=== PATIENT | female | born 1990 | race Caucasian/White ===

== ENCOUNTER 2022-10-29 12:15 | Outpatient (CLI) | payer OTHER, SELFPAY ==
--- NOTE | ~2022-10-29 | XR_ITS ---
Right foot Technique: AP and lateral standing views were obtained. Clinical History: Osteoarthritis Findings: No acute fracture or dislocation is seen. Osseous alignment is anatomic. Joint spaces are p reserved without erosive or degenerative change. Soft tissues are unremarkable. Impression: Unremarkable right foot radiographs. Reviewed, dictated and finalized at location . Impression: Unremarkable right foot radiographs.
--- NOTE | ~2022-10-29 | XR_ITS ---
AP and oblique views of the SI joints CLINICAL HISTORY: Osteoarthritis FINDINGS: SI joints and hip joints are unremarkable. No degenerative, or erosive or sclerotic change seen. Soft tissues are unremarkable. IMPRESSION: Unremarkable exam. Reviewed, dictated and finalized at location M. IMPRESSION: Unremarkable exam.
--- NOTE | ~2022-10-29 | XR_ITS ---
Left foot Technique: AP and lateral standing views were obtained. Clinical History: Osteoarthritis Findings: No acute fracture or dislocation is seen. Osseous alignment is anatomic. Joint spaces are p reserved without erosive or degenerative change. Soft tissues are unremarkable. Impression: Unremarkable left foot radiographs. Reviewed, dictated and finalized at location . Impression: Unremarkable left foot radiographs.
--- NOTE | ~2022-10-29 | XR_ITS ---
Bilateral Hands Technique: PA, oblique, and lateral views, and ball-catcher's view were obtained. Clinical History: Osteoporosis arthritis Findings: No acute fracture or dislocation is seen. Osseous alignment is anatomic. Joint spaces are p reserved. Soft tissues are unremarkable. Impression: Unremarkable bilateral hand radiographs. Reviewed, dictated and finalized at location . Impression: Unremarkable bilateral hand radiographs.
[2022-10-29 13:18] LABS: Basophils Percent Auto 0.5 % (0.2-1.2); Eosinophils Absolute Auto 0.1 K/mm3 (0-0.3); Eosinophils Percent Auto 1.1 % (0-4.4); Hematocrit 44.8 % (37.0-47.0); Hemoglobin 15.1 g/dL (12.0-15.0); Immature Granulocyte Absolute 0.01 K/mm3 (0.00-0.031); Immature Granulocyte Percent A 0.2 % (0-0.5); Lymphocytes Absolute Auto 1.69 K/mm3 (0.9-3.2); Lymphocytes Percent Auto 27.5 % (18.3-44.2); Mean Corpuscular HGB Conc 33.7 g/dl (32-36); Mean Corpuscular Hemoglobin 31.4 pg (26-34); Mean Corpuscular Volume 93.1 fl (80-100); Mean Platelet Volume 9.7 fl (7.4-10.4); Monocytes Absolute Auto 0.4 K/mm3 (0.1-0.6); Monocytes Percent Auto 6.8 % (2.6-8.5); Neutrophils Absolute Auto 3.9 K/mm3 (1.3-6.7); Neutrophils Percent Auto 63.9 % (45.5-73.1); Platelet Count Result 291 k/mm3 (150-375); Red Blood Count 4.81 M/mm3 (4.2-5.4); Red Cell Distribution Width 12.2 % (11.5-14.5); White Blood Count 6.1 K/mm3 (4.5-10.0)
[2022-10-29 13:35] LABS: Alanine Aminotransferase 19 U/L (6-35); Albumin Level 4.6 g/dL (3.5-5.1); Alkaline Phosphatase 53 U/L (38-126); Anion Gap 6 mmol/L (8-16); Aspartate Amino Transferase 28 U/L (14-36); Bilirubin,Total 0.4 mg/dL (0.2-1.3); Blood Urea Nitrogen 19 mg/dL (7-17); CRP 0.5 mg/dL (<1.0); Calcium 9.5 mg/dL (8.4-10.2); Carbon Dioxide 29 mmol/L (22-30); Chloride 104 mmol/L (98-107); Creatine Kinase 70 U/L (30-135); Estimated Glomerular Filt Rate > 60; Glucose 88 mg/dL (65-110); Potassium 3.7 mmol/L (3.4-5.0); Sodium 139 mmol/L (137-145); Uric Acid 3.4 mg/dL (2.5-7.5)
[2022-10-29 13:42] LABS: Rheumatoid Factor < 12.0 IU/ML (<12)
[2022-10-29 13:53] LABS: Vitamin D 25 Hydroxy 47.7 ng/mL
[2022-10-29 13:56] LABS: Erythrocyte Sedimentation Rate 12 mm/hr (0-20)
[2022-10-29 14:08] LABS: Hepatitis B Surface Antigen Negative (Negative)
[2022-10-29 14:09] LABS: HIV 1/2 Ab P24 Ag Result Negative (Negative)
[2022-10-29 14:26] LABS: Hepatitis B Surface Anti Res Negative; Hepatitis C Virus Antibody Negative (Negative)
[2022-11-01 03:21] LABS: Thyroid Peroxidase Antibodies 2 IU/mL (<9)
[2022-11-02 22:05] LABS: Anti Cyclic Citrullinated Pept <16 Units (<20)
[2022-11-02 23:59] LABS: Aldolase 3.5 U/L (<=8.1)
[2022-11-03 08:42] LABS: Angiotensin Converting Enzyme 27.8 U/L (9-67)
[2022-11-03 19:49] LABS: Immunoglobulin A 129 mg/dL (47-310); TTG IGA AB <1.0 U/mL (<15.0)
[2022-11-04 05:13] LABS: Lupus dRVVT Screen 39 sec (<=45); PTT-LA Screen 39 sec (<=40)
== END 2022-10-29 12:16 | disposition home or self-care (01) ==
PROVIDERS: PCP Family Medicine; Visit Provider Internal Medicine
DX: M19.90 Unspecified osteoarthritis, unspecified site (principal); M06.041 Rheumatoid arthritis without rheumatoid factor, right hand; M06.042 Rheumatoid arthritis without rheumatoid factor, left hand
CPT/HCPCS: 36415; 72202; 73130; 73620; 80053; 82085; 82164; 82306; 82550; 82784; 84550; 85025; 85613; 85652; 85730; 86038; 86140; 86200; 86364; 86376; 86430; 86703; 86706; 86803; 87340; G0432

== ENCOUNTER 2023-07-31 06:27 | Emergency (ER) | payer OTHER, SELFPAY ==
[2023-07-31 06:37] VITALS: BP 179/104; PULSE 81; RESP 16; TEMP 36.4; O2SAT 100
--- NOTE | 2023-07-31 06:39 | ECG_ITS ---
SEE SCANNED COPY FOR CONFIRMED REPORT MTDD
[2023-07-31] MEDS: ASPIRIN 81 MG CHEWABLE TABLET 324 MG PO (06:44)
[2023-07-31 06:45] VITALS: BP 157/92; PULSE 64; RESP 19; O2SAT 100
[2023-07-31 06:55] VITALS: BP 147/97; PULSE 66; RESP 20; O2SAT 100
[2023-07-31 07:02] VITALS: RESP 14; O2SAT 100
[2023-07-31 07:02] LABS: Basophils Percent Auto 0.4 % (0.2-1.2); Eosinophils Percent Auto 0.4 % (0-4.4); Hematocrit 42.9 % (37.0-47.0); Hemoglobin 14.6 g/dL (12.0-15.0); Immature Granulocyte Absolute 0.02 K/mm3 (0.00-0.031); Immature Granulocyte Percent A 0.2 % (0-0.5); Lymphocytes Absolute Auto 2.33 K/mm3 (0.9-3.2); Lymphocytes Percent Auto 28.4 % (18.3-44.2); Mean Corpuscular Hemoglobin 31.5 pg (26-34); Mean Corpuscular Volume 92.7 fl (80-100); Mean Platelet Volume 9.8 fl (7.4-10.4); Monocytes Absolute Auto 0.5 K/mm3 (0.1-0.6); Monocytes Percent Auto 5.9 % (2.6-8.5); Neutrophils Absolute Auto 5.3 K/mm3 (1.3-6.7); Neutrophils Percent Auto 64.7 % (45.5-73.1); Platelet Count Result 279 k/mm3 (150-375); Red Blood Count 4.63 M/mm3 (4.2-5.4); White Blood Count 8.2 K/mm3 (4.5-10.0)
[2023-07-31 07:13] LABS: INR 1.1; Prothrombin Time 14.3 Seconds (11.1-14.7)
[2023-07-31 07:14] LABS: Partial Thromboplastin Time 31.9 Seconds (22.3-36.8)
[2023-07-31 07:16] LABS: Alanine Aminotransferase 19 U/L (6-35); Albumin Level 4.9 g/dL (3.5-5.1); Alkaline Phosphatase 57 U/L (38-126); Anion Gap 10 mmol/L (4-12); Aspartate Amino Transferase 28 U/L (14-36); Bilirubin,Total 0.7 mg/dL (0.2-1.3); Blood Urea Nitrogen 9 mg/dL (7-17); Calcium 9.7 mg/dL (8.4-10.2); Carbon Dioxide 24 mmol/L (22-30); Chloride 106 mmol/L (98-107); Estimated CRCL calculation 104 ml/min; Estimated Glomerular Filt Rate > 60; Glucose 95 mg/dL (65-110); Lipase 136 U/L (23-300); Potassium 3.2 mmol/L (3.4-5.0); Sodium 140 mmol/L (137-145)
[2023-07-31 07:20] VITALS: BP 140/86; PULSE 70; RESP 28; O2SAT 100
[2023-07-31 07:28] LABS: Troponin I < 0.012 ng/mL (0.000-0.034)
--- NOTE | 2023-07-31 07:44 | ED.GENADULT ---
HPI - General Adult General Chief complaint: Recheck/Abnormal Lab/Rx Stated complaint: elevated bp 190/102 manual Time Seen by Provider: 07/31/23 07:04 Source: patient Mode of arrival: ambulatory Limitations: no limitations History of Present Illness HPI narrative: 32-year-old with a history of hypertension here with a complaint of elevated blood pressure since yesterday. Patient states that she was on hydrochlorothiazide about a year ago and her blood pressure got stabilized and has not been taking any medication. This morning she was complaining of some chest discomfort and facial pain. She denies any headache, blurred vision, shortness of breath Related Data Home Medications Medication Instructions Recorded Confirmed albuterol sulfate 90 mcg/actuation 1 puff inhalation Q4H PRN 10/26/22 02/02/23 aerosol inhaler chlorthalidone 25 mg tablet 25 mg PO DAILY 10/26/22 02/02/23 estradiol 2 mg tablet 2 mg PO DAILY 10/26/22 02/02/23 levetiracetam 750 mg tablet 750 mg PO Q12H 10/26/22 02/02/23 (Keppra) mometasone-formoterol HFA 50 mcg-5 2 puff inhalation Q12H 10/26/22 02/02/23 mcg/actuation aerosol inhaler (Dulera) trazodone 100 mg tablet 100 mg PO QHS PRN 10/26/22 02/02/23 Allergies Allergy/AdvReac Type Severity Reaction Status Date / Time latex AdvReac Intermediate Unknown Verified 02/02/23 13:28 Review of Systems Review of Systems: All systems reviewed & are unremarkable except as noted in HPI and below Constitutional: Constitutional: Reports no additional constitutional complaints Eyes: Eyes: Reports no additional eye complaints ENT: Reports system reviewed and no additional complaints, except as documented Cardiovascular: Cardiovascular: Reports as per HPI Respiratory: Respiratory: Reports no additional respiratory complaints Gastrointestinal: Gastrointestinal: Reports no additional gastrointestinal complaints Musculoskeletal: Musculoskeletal: Reports no additional musculoskeletal complaints Integumentary/Breasts: Skin/Breast: Reports system reviewed and no additional complaints, except as docu Neurologic: Reports system reviewed and no additional complaints, except as documented PMFSH Past Medical History Medical History Asthma Hypertension Inflammatory arthritis Seizures Surgical History Surgical History H/O laparoscopy H/O: hysterectomy Hx of cholecystectomy Family History Family History Father Hypertension Depression Sibling Asthma Cancer Depression Thyroid disorder Grandparent Alcoholism Cancer Diabetes mellitus Hypertension Heart disease Grandparent Asthma Diabetes mellitus Hypertension Heart disease Social History Social History Smoking status: Never smoker Alcohol intake: current Substance use: never Substance use type: does not use Lack of Transportation: No Lack of Food: Never True Current Housing: I Have Housing Concerned About Future Housing: No Difficulty Paying Gas/Electric Bills: No Difficulty Paying for Meds: No Currently Unemployed: No Education: Decline to Answer Difficulty w/ Childcare or Family Care: No Living arrangements: with family Exam Narrative: GENERAL: Well-appearing, well-nourished, and in no acute distress. HEAD: Normocephalic, atraumatic. EYES: PERRLA and EOMI. ENT: Nares clear, no rhinorrhea or epistaxis. Mucous membranes moist. NECK: Supple. CHEST: Clear to auscultation. No respiratory distress. HEART: Regular rate and rhythm. No murmur heard. Normal peripheral pulses. ABDOMEN: Soft, nontender, nondistended, normal active bowel sounds. EXTREMITIES: Normal range of motion. No edema. SKIN: Warm, dry, no rash. NEURO: No focal deficits. Alert and oriented x3. PSYCH: Normal moo
== END 2023-07-31 07:59 | disposition home or self-care (01) ==
PROVIDERS: Emergency Medicine; Emergency Provider Family Medicine
DX: I10 Essential (primary) hypertension (principal); J45.909 Unspecified asthma, uncomplicated; M19.90 Unspecified osteoarthritis, unspecified site; Z90.710 Acquired absence of both cervix and uterus; Z90.49 Acquired absence of other specified parts of digestive tract; I49.3 Ventricular premature depolarization
CPT/HCPCS: 36415; 80053; 83690; 84484; 85025; 85610; 85730; 93005; 99284; A9270

== ENCOUNTER 2023-08-02 20:04 | Emergency (ER) | payer OTHER, SELFPAY ==
--- NOTE | ~2023-08-02 | XR_ITS ---
EXAM: XR ankle RT min 3V, XR foot RT min 3V DATE: 08/02/2023 20:45 HISTORY: fall, right foot and ankle pain . COMPARISON: None available. FINDINGS: Normal mineralization. Nondisplaced oblique fracture of the proximal fifth metatarsal tube rosity, extending to the level of the intermetatarsal joint. Nondisplaced oblique fracture right firs t distal phalanx extending to the interphalangeal joint. No lytic or blastic lesion. Joint spaces are maintained. No erosion or periosteal change. Soft tissues within normal limits. IMPRESSION: Nondisplaced oblique intra-articular fracture of the right first distal phalanx. Nondispl aced, oblique fracture of the proximal fifth metatarsal (Yoo type fracture). Reviewed, dictated and finalized at location K. IMPRESSION: Nondisplaced oblique intra-articular fracture of the right first di stal phalanx. Nondisplaced, oblique fracture of the proximal fifth metatarsal ( Yoo type fracture).
[2023-08-02 20:14] VITALS: BP 141/110; PULSE 85; RESP 18; TEMP 37.3; O2SAT 100
--- NOTE | 2023-08-02 20:23 | ED.GENADULT ---
HPI - General Adult General Chief complaint: Extremity Injury, Lower Stated complaint: right foot injury Time Seen by Provider: 08/02/23 20:19 History of Present Illness HPI narrative: the patient is a 32-year-old woman who was going down her stairs in her basement, has to step, tripped and fell, losing her balance, landing and twisting her right foot and ankle, resulting in pain in the right lateral malleolus of the foot and to a lesser extent at the medial malleolus and also more prominently at the right lateral aspect of her foot including her toes and the great toe. She is unable to bear weight on her right leg since this event happened just prior to arrival. She has not taken any oral pain medications for this. She applied ice and came here for evaluation. She did not strike her head. No neck or back pain. No pain elsewhere except the right foot and ankle. Minimal discomfort at the left lateral foot but is able to bear weight on that left leg without much difficulty. Past medical history is notable for asthma, hypertension, inflammatory arthritis. She takes trazodone Keppra and hydrochlorothiazide. Prior hysterectomy 2017. Related Data Home Medications Medication Instructions Recorded Confirmed levetiracetam 750 mg tablet 750 mg PO HS 10/26/22 08/02/23 (Keppra) trazodone 100 mg tablet 100 mg PO QHS PRN Insomnia 10/26/22 08/02/23 levetiracetam 1,500 mg 1,500 mg PO DAILY 08/02/23 08/02/23 tablet,extended release 24 hr Allergies Allergy/AdvReac Type Severity Reaction Status Date / Time latex AdvReac Intermediate Unknown Verified 02/02/23 13:28 Review of Systems Review of Systems: All systems reviewed & are unremarkable except as noted in HPI and below Constitutional: Constitutional: Denies chills, Denies excessive sweating, Denies fatigue, Denies fever(s), Denies headache(s) and Denies weakness Eyes: Eyes: Denies change in vision and Denies photophobia ENT: Denies dysphagia, Denies dizziness, Denies headache(s), Denies lip swelling, Denies nasal congestion, Denies sore throat and Denies tongue swelling Cardiovascular: Cardiovascular: Denies chest pain, Denies syncope, Denies rapid heart rate and Denies dyspnea Respiratory: Respiratory: Denies cough, Denies dyspnea and Denies wheezing Gastrointestinal: Gastrointestinal: Denies abdominal pain, Denies constipation, Denies dysphagia, Denies diarrhea, Denies nausea and Denies vomiting Genitourinary: Genitourinary: Denies hematuria, Denies urinary frequency, Denies dysuria and Denies urinary urgency Musculoskeletal: Musculoskeletal: Denies back pain, Denies myalgias, Reports arthralgias ( Right foot and ankle), Reports joint swelling ( right foot and ankle) and Denies numbness Integumentary/Breasts: Skin/Breast: Denies pruritus, Denies erythema and Denies rash Neurologic: Denies confusion, Denies dizziness, Denies syncope, Denies headache(s), Denies focal weakness, Denies numbness and Denies weakness Psychiatric: Psychiatric: Denies anxiety and Denies confusion Endocrine: Endocrine: Denies excessive sweating and Denies fatigue Hematologic/Lymphatic: Hematologic/Lymphatic: Denies easy bleeding and Denies easy bruising Allergic/Immunologic: Allergic/Immunologic: Denies lip swelling, Denies tongue swelling and Denies wheezing PMFSH Past Medical History Medical History Asthma Hypertension Inflammatory arthritis Seizures Surgical History Surgical History H/O laparoscopy H/O: hysterectomy Hx of cholecystectomy Family History Family History Father Hypertension Depression Sibling Asthma Cancer Depression Thyroid disorder Grandparent Alcoholism Cancer Diabetes mellitus Hypertension Heart disease Grandparent Asthma Diabetes mellitus Hypertension Heart disease Social H
[2023-08-02] MEDS: IBUPROFEN 400 MG TABLET 800 MG PO (20:28)
[2023-08-02] MEDS: HYDROcodone/acetaminophen (*CRX) 5-325 MG TABLET 1 TAB PO (20:28)
[2023-08-02] MEDS: ACETAMINOPHEN 325 MG TABLET 650 MG PO (20:29)
[2023-08-02 21:09] VITALS: BP 136/88; PULSE 85; RESP 18; TEMP 36.5; O2SAT 98
== END 2023-08-02 21:09 | disposition home or self-care (01) ==
PROVIDERS: Emergency Provider Emergency Medicine
DX: S92.354A Nondisplaced fracture of fifth metatarsal bone, right foot, initial encounter for closed fracture (principal); W10.9XXA Fall (on) (from) unspecified stairs and steps, initial encounter; J45.909 Unspecified asthma, uncomplicated; I10 Essential (primary) hypertension; R56.9 Unspecified convulsions
CPT/HCPCS: 29515; 73610; 73630; 99284; A9270

== ENCOUNTER 2024-11-06 23:28 | Emergency (ER) | payer OTHER, SELFPAY ==
--- NOTE | ~2024-11-06 | CT_ITS ---
Non-contrast CT scan of the Abdomen and Pelvis Clinical indication: Renal stone Technique: 2.5 mm axial scans were obtained through the abdomen and pelvis without intravenous or oral contrast. Dose reduction technique was used on this scan by utilizing automated exposure control and iterative reconstruction technique. The dose-length product (DLP) was 183.77 mGy-cm. Findings: Images through the lung bases reveal moderate pericardial effusion. Probable 2 mm left UVJ with minimal left hydroureteronephrosis. Additional punctate nonobstructing left renal stone. No right renal or ureteral stone. No right hydronephrosis. The liver, spleen, pancreas, and adrenals appear normal. Cholecystectomy clips are present. There is no aortic aneurysm. There is no evidence of bowel obstruction. Images through the pelvis were performed. There is no evidence of ascites or lymphadenopathy. Urinary bladder unremarkable. No pelvic mass seen. Impression: Probable 2 mm left UVJ stone with minimal left hydroureteronephrosis. Additional punctate nonobstructing left renal stone. Moderate pericardial effusion. Reviewed, dictated and finalized at [facility]. Impression: Probable 2 mm left UVJ stone with minimal left hydroureteronephrosis. Additional punctate nonobstructing left renal stone. Moderate pericardial effusion.
[2024-11-06 23:30] VITALS: BP 145/99; PULSE 58; RESP 18; TEMP 36.7; O2SAT 99
--- OUTSIDE RECORDS SUMMARY | 2024-11-06 23:31 | XMS_ITS | Encounter Summary ---
Author Organization [facility] Address [address] [place] [address] Care Team Providers Care Floor Worker [place] Name Role Phone Lori Hector MD Primary Care Provider [phone] Douglas Mejia MD Unavailable Reason for Referral * (Routine) - New Request Specialty Diagnoses / Procedures Referred By Contac t Referred To Contact Diagnoses Palpitations Procedures CLINIC - [id number] [facility] Katerine Burns MD [address] [place] [address] Phone: tel: fax: Referral ID Status Reason Start Date Expiration Date V isits Requested Visits Authorized [id number] New Request 11/06/2024 11/06/2025 1 1 Reason for Visit * Reason Onset Date Comments Schedule Test 11/06/2024 Encounter Details Date Type Department Care Team (Late st Contact Info) Description 11/06/2024 Telephone [facility] [address] [place] [id number] Katerine Burns MD [address] [place] [address] Schedule Test Social History Tobacco Use Types Packs/Day Years Used Date Smoking Tobacco: Former Cigarettes 0.5 10 0 09/2011 - 09/2021 Smokeless Tobacco: Never Alcohol Use Standard Drinks/Week Comments Yes 0 (1 standard drink = 0.6 oz pur e alcohol) socially [facility] Utilities Answer Date Recorded In the past 12 months has th e electric, gas, oil, or water company threatened to shut off services in your home? No 10/11/2024 Humiliation, Afraid, Rape, and Kick questionnair e Answer Date Recorded Within the last year, have y ou been afraid of your partner or ex-partner? No 10/11/2024 Within the last year, have y ou been humiliated or emotionally abused in other ways by your partner or ex-partner? No Within the last year, have y ou been kicked, hit, slapped, or otherwise physically hurt by your partner or ex-partner? No 10/11/2024 Within the last year, have y ou been raped or forced to have any kind of sexual activity by your partner or ex-partner? No 10/11/2024 Overall Financial Resource Strain (CARDIA) Answe r Date Recorded How hard is it for you to pa y for the very basics like food, housing, medical care, and heating? Not hard at all 10/11/2024 PHQ-2 Answer Date Recorded Patient Health Questionnaire-2 Score 0 04/16/2022 Hunger Vital Sign Answer Date Recorded Within the past 12 months, y ou worried that your food would run out before you got the money to buy more. Never true 10/12/19 25 Within the past 12 months, t he food you bought just didn't last and you didn't have money to get more. Never true 10/11/2024 PRAPARE - Transportation Answer Date Re corded In the past 12 months, has l ack of transportation kept you from medical appointments or from getting medications? No 09/20 In the past 12 months, has l ack of transportation kept you from meetings, work, or from getting things needed for daily living? No 10/11/2024 Housing Stability Vital Sign Answer Vick e Recorded In the last 12 months, was t here a time when you were not able to pay the mortgage or rent on time? No 10/11/2024 In the past 12 months, how m any times have you moved where you were living? 0 10/11/2024 At any time in the past 12 m [facility], were you homeless or living in a group home (including now)? No 10/11/2024 Comments No Sex and Gender Information Value Date Recorded Sex Assigned at Female 10/11/2024 12:50 PM CDT Legal Sex Female 8:26 PM CDT Gender Identity Not on file Sexual Orientation Not on file documented as of this encounter Functional Status * Are you deaf or do you have serious difficulty hearing Answer Date of Assessment Author Status No 10/11/2024 11:15 PM CDT Reuben Dorman R N Active * Are you blind or do you have serious difficulty seeing, even when wearing glasses? Answer Date of Assessment Author Status No 10/11/2024 11:15 PM CDT Reuben Dorman R N Active * Do you have serious difficulty walking or climbing stairs? Answer Date of Assessment Author Status No 10/11/2024 11:15 PM CDT Reuben Dorman R N Active * Do you have difficulty dressing or bathing? Answer Date of Assessment Author Status No 10/11/2024 11:15 PM CDT Reuben Dorman R N Active * Because of a physical, mental, or emotional condition, do you have difficulty doing errands alone such as visiting a doctor's office or shopping? Answer Date of Assessment Author Status No 10/11/2024 11:15 PM CDT Reuben Dorman R N Active documented as of this encounter Mental Status * Because of a physical, mental, or emotional condition, do you have serious difficulty concentrating, remembering, or making decisions? Answer Entry Date Author Status No 10/11/2024 11:15 PM CDT Reuben Dorman R N Active documented in this encounter Progress Notes * Yvonne Marshall MA - 11/06/2024 2:10 PM CDT Post clinic orders. 2 week MCT documented in this encounter Plan of Treatment Scheduled Orders Name Type Priority Associated Diagnoses Orde r Schedule CLINIC - [address] [facility]CT - Today EKG-NonRad Routine Palpitations Expected: 11/06/2024, Expires: 11/06/2025 documented as of this encounter Visit Diagnoses Diagnosis Palpitations- Primary documented in this encounter Care Teams Floor Worker [place] Relationship Specialty Start Date End Date Lori Hector MD [address] [place] [phone] PCP - General FAMILY PRACTICE 10/03/18 Douglas Mejia MD [address] [place] [phone] Physician CARDIOLOGY 01/05/23 documented as of this encounter
--- OUTSIDE RECORDS SUMMARY | 2024-11-06 23:31 | XMS_ITS | Clinical Summary ---
Author Organization [facility] Address [address] [place] [address] Care Team Providers Care Canvas Worker Apprentice Name Role Phone Unavailable Primary Care Provider Unavailabl e Source Comments [facility],non-owned Affiliates and Associated Physician Practices is amultiple site organization consisting of ambulatory clinics and hospital sitesin [place], [place], [place] and [place]. This disclosure is being madepursuant to the Care Everywhere program and may not contain all information available regarding this patient. 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 Gender Identity Not on file Sexual Orientation Not on file Plan of Treatment Health Maintenance Due Date Last Done Comments HIV SCREENING 12/17/2007 HEPATITIS C SCREENING 12/12/2010 DTAP/TDAP/TD VACCINES (1 - Tdap) 12/17/2011 HEPATITIS B VACCINE (1 of 3 - 19+ 3-dose series) 12/17/2011 HPV VACCINE (1 - 3-dose SCDM series) 12/17/2019 COVID-19 VACCINE ( - 2023-2 5 season) 2023 DEPRESSION SCREENING 03/22/2024 INFLUENZA VACCINE (#1) 2024 ZOSTER VACCINE (1 of 2) 2042 HIB VACCINE Aged Out No longer eligi ble based on patient's age to complete this topic MENINGOCOCCAL (Group B) VACC INE SHARED DECISION-MAKING Aged Out No longer eligibl e based on patient's age to complete this topic MENINGOCOCCAL GROUPS A/C/Y/W VACCINE Aged Out No longer eligible b ased on patient's age to complete this topic PNEUMOCOCCAL VACCINE Aged Out No long er eligible based on patient's age to complete this topic
--- OUTSIDE RECORDS SUMMARY | 2024-11-06 23:31 | XMS_ITS | Encounter Summary ---
Author Organization [facility] Address [address] [place] [address] Care Team Providers Care Psych Specialist Name Role Phone Lori Hector MD Primary Care Provider [phone] Douglas Mejia MD Unavailable Reason for Visit * Reason Comments Heart Problem Encounter Details Date Type Department Care Team (Late st Contact Info) Description 11/06/2024 12:45 PM CDT [facility] [address] [place] [phone] Katerine Burns MD [address] [place] [address] Heart Problem Social History Tobacco Use Types Packs/Day Years Used Date Smoking Tobacco: Former Cigarettes 0.5 10 0 09/2011 - 09/2021 Smokeless Tobacco: Never Alcohol Use Standard Drinks/Week Comments Yes 0 (1 standard drink = 0.6 oz pur e alcohol) socially [facility] Utilities Answer Date Recorded In the past 12 months has e [employer], gas, oil, or water [employer] threatened to shut off services in your [...] any time in the past 12 m [facility], were you homeless or living in a care home (including now)? No 10/11/2024 Comments No Sex and Gender Information Value Date Recorded Sex Assigned at Female 10/11/2024 12:50 PM CDT Legal Sex Female 8:26 PM CDT Gender Identity Not on file Sexual Orientation Not on file documented as of this encounter Last Filed Vital Signs Vital Sign Reading Time Taken Comments Blood Pressure 106/68 11/06/2024 12:24 PM CDT Pulse 80 11/06/2024 12:24 PM CDT Temperature - - Respiratory Rate 16 11/06/2024 12:24 PM CDT Oxygen Saturation 98% 11/06/2024 12:24 PM CDT Inhaled Oxygen Concentration - - Weight 63 kg (139 lb) 11/06/2024 12:24 PM CDT Height 165.1 cm (5' 5) 11/06/2024 12:24 PM CDT Body Mass Index 23.13 11/06/2024 12:24 PM CDT documented in this encounter Functional Status * Are you [...] documented in this encounter Progress Notes * Katerine Burns MD - 11/06/2024 12:45 PM CDT Images from the original note were not included. Cardiology Hospital follow up/progress PATIENT:Etienne Clemons : 1990 DATE OF SERVICE: 11/06/2024 Cardiology Outpatient follow up visit evaluation PATIENT:Etienne Clemons : 1990 Referring MD: No ref. provider found PCP: LORI HECTOR MD Chief Complaint: Follow up visit for regular FU HISTORY OF PRESENTING ILLNESS Etienne Clemons is a 33-year-old female with past medical history of pericardial effusion and seizure who admitted to the hospital recently with syncopal episodes and found to have accidentally on CT pericardial fusion patient send discharge reports palpitations denies any further syncopal episode or presyncope echocardiogram from today showed small to moderate pericardial effusion stable without tamponade Echocardiogram November 06, 2024 The left ventricular size is normal. The calculated ejection fraction is 63%. Left ventricular diastolic function is normal. The right ventricular function is normal. Small to moderate pericardial effusion (best seen in the subcostals). No evidence of tamponade. No significant valves abnormalities ASSESSMENT & PLAN Etienne Clemons is a very pleasant 33-year-old female who I had the pleasure of meeting with today for follow-up in regards to his ongoing cardiovascular problems outlined below: Pericardial effusion small to moderate stable no need for intervention we will continue monitoring 2. Palpitation will check event monitoring All questions/concerns were answered to the patient's satisfaction and we are all in agreement withthis plan proposed above understanding all the risks and benefits. I spent 25 minutes today reviewing the patient's medical record, obtaining history, performing an exam, ordering medications, tests, and/or procedures, documenting in the medical record, and counseling and educating the patient. This total amount of time was spent including preparation for the patient's appointment, reviewing and interpreting the medical records/chart review, laboratory data, andimaging data as well. Significant proportion of the time was also spent in [id number] interactionwith the patient as well as formulating a plan for management. Thank you for allowing us to participate in the care of your patient and please do not hesitate to reach out to us if any questions or concerns. Katerine Burns MD [facility] Structural Casket Assembler [employer] Preferred: please message me via [employer] Secure Chat for non-urgent issues This note was generated using voice recognition. Occasional errors may occur, and I appreciate your understanding. REVIEW OF SYSTEMS: All systems including eyes, ENT, skin, respiratory, gastrointestinal, genitourinary, neurological, musculoskeletal, endocrine, hematologic and psychiatric systems were reviewed with no significant relevant new findings except for the systems as discussed above in the history of presenting illness. PAST MEDICAL HISTORY: Past Medical History[1] PAST SURGICAL HISTORY: Past Surgical History[2] OUTPATIENT MEDICATIONS: Current medication(s) at the start of this visit: Medication Sig levETIRAcetam (KEPPRA) 750 MG tablet Take 2 tablets (1,500 mg total) by mouth every morning. levETIRAcetam (KEPPRA) 750 MG tablet Take 1 tablet (750 mg total) by mouth every evening. ondansetron (ZOFRAN-ODT) 4 MG disintegrating tablet 1 tablet every 4-6 hours as needed for nausea/vomiting topiramate (TOPAMAX) 25 MG tablet Take 3 tablets (75 mg total) by mouth every morning. traZODone (DESYREL) 100 MG tablet Take 1 tablet (100 mg total) by mouth nightly as needed for Sleep. ALLERGIES: No Known Allergies SOCIAL HISTORY: Social History[3] FAMILY HISTORY: Family History[4] PHYSICAL EXAMINATION: VITALS: Vitals: 11/06/24 1224 BP: 106/68 Pulse: 80 Resp: 16 SpO2: 98% BMI Readings from Last 1 Encounters: 11/06/24 23.13 kg/m?? Constitutional: appears stated age and cooperative Head: Normocephalic, without obvious abnormality Eyes: PERRLA, EOM full and intact, Sclera are anicteric, ENT: lips, mucosa, and tongue normal Neck: no clear evidence of carotid bruit, no evidence of JVD, Neck supple, symmetrical, trachea midline, with no significant evidence of thyroid enlargement Respiratory: clear to auscultation bilaterally Cardiovascular: No obvious significant chest wall deformity, regular rate and rhythm, S1, S2 normal, no murmurs, no clicks, rubs or gallops Gastrointestinal: soft, non-tender; bowel sounds present with no clear evidence of masses, no organomegaly Musculoskeletal: negative for pertinent findings Extremities: extremities normal, atraumatic, no clubbing, cyanosis or edema Neurologic: No clear significant focal deficits Psychiatric: Alert and oriented with adequate insight. Mood and affect are appropriate LABORATORY AND CARDIODIAGNOSTIC STUDIES: Chemistry Lab Results Component Value Date/Time NA 139 10/13/2024 05:07 AM K 3.7 10/13/2024 05:07 AM CL 112 10/13/2024 05:07 AM BUN 9 10/13/2024 05:07 AM AST 12 (L) 10/12/2024 05:23 AM ALT 29 10/12/2024 05:23 AM TSH 3.310 10/12/2024 05:23 AM HGBA1C 4.9 09/26/2021 10:15 AM NT-Pro BNP No components found for: NTPROBNP Lipids Lab Results Component Value Date/Time CHOL 201 (H) 09/26/2021 10:15 AM CHOL 140 07/19/2019 09:29 AM HDL 68 09/26/2021 10:15 AM HDL 67 (H) 07/19/2019 09:29 AM LDL 122 (H) 09/26/2021 10:15 AM LDL 64 07/19/2019 09:29 AM CBC Lab Results Component Value Date/Time WBC 4.98 10/12/2024 05:23 AM RBC 4.14 10/12/2024 05:23 AM HGB 13.0 10/12/2024 05:23 AM HCT 36.8 10/12/2024 05:23 AM PLT 236 10/12/2024 05:23 AM PT/INR Lab Results Component Value Date/Time INR 1.2 (H) 10/12/2024 05:23 AM Cardiac workup: As outlines above in HPI Katerine Burns MD [facility] Structural [employer] Preferred: please message me via [employer] Secure Chat for non-urgent issues This note was generated using voice recognition. Occasional errors may occur, and I appreciate your understanding. [1] Past Medical History: Diagnosis Date Abdominal pain Asthma (HHS/HCC) good control Biliary dyskinesia BMI 25.0-25.9,adult COVID-19 vaccination declined Depression H/O fever History of nausea and vomiting Hypertension Seizures (CMS/HCC HHS/HCC) [2] Past Surgical History: Procedure Laterality Date EXPLORATORY LAPAROSCOPY HYSTERECTOMY 2018 total [3] Social History Socioeconomic History Marital status: Single Tobacco Use Smoking status: Former Current packs/day: 0.00 Average packs/day: 0.5 packs/day for 10.0 years (5.0 ttl pk-yrs) Types: Cigarettes Start date: 09/2011 Quit date: 09/2021 Years since quittin.1 Smokeless tobacco: Never Vaping Use Vaping status: Never Used Substance and Sexual Activity Alcohol use: Yes Comment: socially Drug use: No Sexual activity: Yes Social Drivers of Health Financial Resource Strain: Low Risk (10/11/2024) Overall Financial Resource Strain (CARDIA) Difficulty of Paying Living Expenses: Not hard at all Food Insecurity: No Food Insecurity (10/11/2024) Hunger Vital Sign Worried About Running Out of Food in the Last Year: Never true Ran Out of Food in the Last Year: Never true Transportation Needs: No Transportation Needs (10/11/2024) PRAPARE - Transportation Lack of Transportation (Medical): No Lack of Transportation (Non-Medical): No Intimate Partner Violence: Not At Risk (10/11/2024) Humiliation, Afraid, Rape, and Kick questionnaire Fear of Current or Ex-Partner: No Emotionally Abused: No Physically Abused: No Sexually Abused: No Housing Stability: Low Risk (10/11/2024) Housing Stability Vital Sign Unable to Pay for Housing in the Last Year: No Number of Times Moved in the Last Year: 0 Homeless in the Last Year: No [4] Family History Problem Relation Name Age of Onset Hypertension Mother Hypertension Father No Known Problems Maternal Grandmother Diabetes Maternal Grandfather Diabetes Paternal Grandmother Diabetes Paternal Grandfather Cancer Paternal Grandfather No Known Problems Sister No Known Problems Sister Thyroid Sister Other (thyroid cancer) Sister Asthma Brother documented in this encounter Plan of Treatment Not on file documented as of this encounter Visit Diagnoses Diagnosis Palpitations- Primary documented in this encounter Care Teams Psych Specialist Relationship Specialty Start Date End Date Lori Hector MD [address] [place] [address] PCP - General FAMILY PRACTICE 10/03/18 Douglas Mejia MD [address] [place] [phone] Physician CARDIOLOGY 01/05/23 documented as of this encounter
--- OUTSIDE RECORDS SUMMARY | 2024-11-06 23:31 | XMS_ITS | Clinical Summary ---
Author Organization [facility] [address] [facility] Address [address] [place] [address] Care Team Providers Care Event Management Consultant Name Role Phone Lori Hector MD Primary Care Provider Kimberly Pastrana Unavailable [phone] Allergies No known active allergies Medications albuterol HFA (ProAir HFA) 90 mcg/actuation inhaler Inhale 2 puffs every 4 (four) hours as needed 9 Active mometasone-form oterol (Dulera) 200-5 mcg/actuation inhalerIndicati ons:asthma Inhale 2 puffs 2 (two) times a day 9 Active traZODone (DESYREL) 100 mg tabletIndicatio ns:insomnia associated with depression Take 100 mg by mouth nightly as needed 1 Active hydroCHLOROthia zide (MICROZIDE) 12.5 mg capsule Take 1 capsule (12.5 mg total) by mouth paralegal supervisor before breakfast 4 Active HYDROcodone-hayder taminophen (NORCO) 5-325 mg per tablet Take 1 tablet by mouth every 4 (four) hours as needed 4 Active naproxen (NAPROSYN) 500 mg tablet Take 1 tablet (500 mg total) by mouth 2 (two) times a day as needed 4 Active Active Problems Problem Noted Date Diagnosed Date Headache 06/12/2022 Assessment & Plan (06/12/2022 4:32 PM CDT): -Mild persistent Headache past 2 days -Treated with IVF, IV toradol, IV compazine IV magnesium & po benadryl, markedly improved Bradycardia 06/11/2022 Assessment & Plan (06/12/2022 4:17 PM CDT): Pt with HR ~50-70s while in the ED, she reports some readings at home in the 40s which make her feel nervous and lightheaded. EKG at the time with HR 70s, no AV block or other abnormality noted - likely normal HR for a 31 year old, will monitor on telemetry but not likely contributing to symptoms given normal holter in 2020 as well with no bradycardia noted -Asx bradycardia ~40s once during hospitalization, otherwise normal HR, no tele events/arrhythmias Fatigue 06/11/2022 Assessment & Plan (06/12/2022 4:31 PM CDT): Patient presenting with a roughly 2 week history of severe fatigue, during this time with associated chest pains, variable blood pressure, and some HR readings in the 40s. Single episode of nausea/vomiting today. 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 Had presented to local ED on 06/09, at that time with normal ekg/trop/CT PE (same small pericardial effusion) and discharged. - ED workup unremarkable with ekg, tsh, trop, cxr, ua, test negative Unclear etiology, pt has followed with local fast food sales assistant for similar issue in past including chest pain, normal holter in 2020 (some PVC and hx of PSVT), last echo not visible but per note stable small pericardial effusion DDx: viral syndrome, depression/anxiety, but given ongoing symptoms obtained HIV, RPR, which were non-reactive. Cortisol random low, stim with normal response, urine metanephrines (although pheo is unlikely) pending at the time of disharge, JORGE LUIS+ but vague marker & no acute indication for Rheumatology consult as inpatient, ANCA indeterminate, UDS negative, mono spot negative, Repeat echo was unremarkable. Ordered a Sleep Medicine Referral at discharge. Hypertension, essential 06/11/2022 Assessment & Plan (06/12/2022 4:18 PM CDT): Earlier in year pt had been hypertensive, was started on chlorthalidone/losartan by fast food sales assistant. Complicated by hypotensive episodes and were held, at repeat visit BP had normalized - pt reports frequent readings at home 150/170 SBP, in ED is also 170/100 on presentation, but most readings 150/90 - reassured patient regarding blood pressure reading as she finds these very concerning - Restarted losartan 25 for now, BP 110/58 at discharge Asthma 06/11/2022 Assessment & Plan (06/12/2022 4:16 PM CDT): Hx of ashtma, currently no symptoms. Takes albuterol and dulera at home, substituted with albuterol and breo while inpatient HD stable on RA Epilepsy 12/04/2010 Assessment & Plan (06/12/2022 4:17 PM CDT): Pt with hx of seizures, follows with local neurologist. Last EEG with no activity last year - cont keppra 750 bid - cont topomax, although pt reports this is mostly for weight from her pcp -No sz observed while inpatient Surgical History Surgery Date Site/Laterality Comments HYSTERECTOMY Bilateral 10/2017 CHOLECYSTECTOMY 07/2021 Medical History Medical History Date Comments Routine or child health check Normal Routine History And Physical Adolescent (14 - 19) - (Added by TW Conv) Asthma Epilepsy (HCC) Hypertension Social History Tobacco Use Types Packs/Day Years Used Date Smoking Tobacco: Never Personal Safety Answer Date Recorded Have you ever been in or are you currently in a harmful physical or emotional relationship or is someone making you feel afraid or unsafe? 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 Gender Identity Not on file Sexual Orientation Not on file Obstetrics History Last Filed Vital Signs Vital Sign Reading Time Taken Comments Blood Pressure 110/58 06/12/2022 9:00 AM CDT Pulse 74 06/12/2022 9:00 AM CDT Temperature 36.3 C (97.3 F) 06/12/2022 9:00 AM CDT Respiratory Rate 16 06/12/2022 9:00 AM CDT Oxygen Saturation 99% 06/12/2022 9:00 AM CDT Inhaled Oxygen Concentration - - Weight 79.5 kg (175 lb 3.2 oz) 06/11/2022 4:10 A M CDT Height 165.1 cm (5' 5) 09/15/2023 2:05 PM CDT Body Mass Index 29.15 06/11/2022 4:10 AM CDT Plan of Treatment Health Maintenance Due Date Last Done Comments Depression Screening 1990 Hepatitis C Screening 1990 Varicella Vaccines (1 of 2 - 13+ 2-dose series) 2005 Regular Well Visit/Exam 18-64 2010 Pneumococcal vaccine <65 (1 of 2 - PCV) 12/17/2011 Covid-19 Vaccine (3 - 2023-2 5 season) 2023 01/14/2022, 12/22/2021 Influenza Vaccine (#1) 2024 , 01/19/2019, 01/18/2018, Additional history exists DTaP/Tdap/Td Vaccine (8 - Td or Tdap) 11/04/2028 11/04/2018, 08/25/2007, 01/08/1997, Additional history exists Hepatitis B Screening Completed 1993 , 03/04/1993, 1992 HPV Vaccines Completed 02/23/2008, 09/2007, 08/25/2007 Insurance [employer] [facility] [employer] [facility] Advance Directives For more information, please contact: [phone] * Full Code (Latest Code Status on File) Date Activated Date Inactivated Comments 06/11/2022 4:18 AM 06/12/2022 8:32 PM Care Teams Event Management Consultant Relationship Specialty Start Date End Date Lori Hector MD [address] [place] [address] PCP - General Family Medicine 02/19/21 Kimberly Pastrana PA [address] [place] [address] Physician [facility] [place] 06/02/22
--- OUTSIDE RECORDS SUMMARY | 2024-11-06 23:31 | XMS_ITS | Encounter Summary ---
Author Organization [facility] Address [address] [place] [address] Care Team Providers Care Welder Apprentice Gas Name Role Phone Lori Hector MD Primary Care Provider [phone] Douglas Mejia MD Unavailable Encounter Details Date Type Department Care Team (Latest Contact Info) Description 11/06/2024 Travel Social History Tobacco Use Types Packs/Day Years Used Date Smoking Tobacco: Former Cigarettes 0.5 10 0 09/2011 - 09/2021 Smokeless Tobacco: Never Alcohol Use Standard Drinks/Week Comments Yes 0 (1 standard drink = 0.6 oz pur e alcohol) socially [facility] Utilities Answer Date Recorded In the past 12 months has e electric, gas, oil, or water company [...] any time in the past 12 m [facility], were you homeless or living in a [...] R N Active documented in this encounter Plan of Treatment Not on file documented as of this encounter Visit Diagnoses Not on filedocumented in this encounter Care Teams Welder Apprentice Gas Relationship Specialty Start Date End Date Lori Hector MD [address] [place] [phone] PCP - General FAMILY PRACTICE 10/03/18 Douglas Mejia MD [address] [place] [phone] Physician CARDIOLOGY 01/05/23 documented as of this encounter
--- OUTSIDE RECORDS SUMMARY | 2024-11-06 23:31 | XMS_ITS | Encounter Summary ---
Author Organization [facility] Address [address] [place] [address] Care Team Providers Care Inside Polisher Name Role Phone Lori Hector MD Primary Care Provider [phone] Douglas Mejia MD Unavailable Reason for Referral * Imaging (Urgent) - Closed Specialty Diagnoses / Procedures Referred By Harman villalba Referred To Contact RADIOLOGY Diagnoses Pericardial effusion (HHS/HCC) Procedures USE ECHOCARDIOGRAM USE ECHOCARDIOGRAM Magalie Dorsey PA-C [address] [place] [address] Phone: tel: fax: Referral ID Status Reason Start Date Expiration Date Visits Re quested Visits Authorized [id number] Closed 10/16/2024 11/16/2025 1 1 Reason for Visit * Imaging (Urgent) - Closed Specialty Diagnoses / Procedures Referred By Harman villalba Referred To Contact RADIOLOGY Diagnoses Pericardial effusion (HHS/HCC) Procedures USE ECHOCARDIOGRAM USE ECHOCARDIOGRAM Magalie Dorsey PA-C [address] [place] [address] Phone: tel: fax: Referral ID Status Reason Start Date Expiration Date Visits Re quested Visits Authorized [id number] Closed 10/16/2024 11/16/2025 1 1 Encounter Details Date Type Department Care Team (Late st Contact Info) Description 11/06/2024 11:00 AM CDT Hospital Encounter [facility] [address] [place] [address] Magalie Dorsey PA-C [address] [facility] [address] [place] [id number] Arrived Social History Tobacco Use Types Packs/Day Years Used Date Smoking Tobacco: Former Cigarettes 0.5 10 0 09/2011 - 09/2021 Smokeless Tobacco: Never Alcohol Use Standard Drinks/Week Comments Yes 0 (1 standard drink = 0.6 oz pur e alcohol) socially [facility] Utilities Answer Date Recorded In the past [...] time in the past 12 m [facility], were you homeless or living in a longterm (including now)? No 10/11/2024 Comments No Sex [...] Assessment Author Status No 10/11/2024 11:15 PM CANDYT Reuben Dorman R N Active documented as of this encounter Mental Status * Because of a physical, mental, or emotional condition, do you have serious difficulty concentrating, remembering, or making decisions? Answer Entry Date Author Status No 10/11/2024 11:15 PM CDT Reuben Dorman R N Active documented in this encounter Plan of Treatment Not on file documented as of this encounter Procedures Procedure Name Priority Date/Time Associated Diagnosis Comments USE ECHOCARDIOGRAM IRENE 11/06/2024 11 :33 AM CDT Pericardial effusion (HHS/HCC) documented in this encounter Results * USE ECHOCARDIOGRAM (11/06/2024 11:33 AM CDT) Anatomical Region Laterality Modality Cardiac Echocardiogram 11/06/2024 11:1 7 AM CDT Narrative 11/06/2024 11:55 AM CDT Echocardiography Report Pat.Name: MARYANNE ZAIDI Pat.ID: [id number] St.Date: 11/06/2024 Refer.: [id number] CANDY ABDI EWDPROV EWDPROV Exam Time: 11:17:00 AM Study Type:ECHO WITH CARDIAC DOPPLER COMP Height: 165 cm Weight: 61 kg BSA: 1.67 m2 Age: 9 1990,33Y Sex: F BP: 123/86 HR: 50 bpm Sonogrphr: Lupe Reyes RDCS Pat. Stat.:Outpatient CPT - 4: [id number] Reason for Study:Pericardial effusion Procedures: 2D, M-mode, Doppler, Color Flow Race: W ++++++++++++++++++++++++++++++++++++ SUMMARY: ++++++++++++++++++++++++++++++++++++ The left ventricular size is normal. The calculated ejection fraction is 63%. Left ventricular diastolic function is normal. The right ventricular function is normal. Small to moderate pericardial effusion (best seen in the subcostals). No evidence of tamponade. No significant valves abnormalities ++++++++++++++++++++++++++++++++++++ FINDINGS: ++++++++++++++++++++++++++++++++++++ LV: The left ventricular size is normal. The left ventricular systolic function is normal. The calculated ejection fraction is 63%. The septal E/e' is normal at < 8. The lateral E/e' is normal at <8. Left ventricular diastolic function is normal. WM: Wall motion appears normal in all segments. RV: The right ventricle size is normal. The right ventricular function is normal. IVS: Intraventricular septum is normal. LA: The left atrial volume is normal ( less than 34 ml/M2). RA: Right atrial size is normal. IAS: Atrial septum not well visualized in all views. PEREZ: Small to moderate pericardial effusion (best seen in the subcostals). No evidence of tamponade. AO: The proximal ascending aorta measures 2.5cm. PA: Unable to reliably quantitate pulmonary systolic pressure. PVn: Pulmonary veins are not assessable. SVn: Inferior vena cava shows >50% collapse with respiration consistent with normal right atrial pressure. AV: The aortic valve is trileaflet. No evidence of aortic valve stenosis. No evidence of aortic valve regurgitation. MV: Structurally normal mitral valve. No evidence of mitral regurgitation. No evidence of mitral stenosis. PV: The pulmonic valve is normal There is trace pulmonic regurgitation TV: The tricuspid valve appears structurally normal. There is trace tricuspid regurgitation. ++++++++++++++++++++++++++++++++++++ MEASUREMENTS: ++++++++++++++++++++++++++++++++++++ DOPPLER AV Forward Flow AV pkVel 129 cm/s (100-170) AV pkPG 7 mmHg MV Forward Flow MV DeTm 173 msec MV E/A 2.2 MVA P1/2t 4.31 cm2 (4-6) MV pkE 85.9 cm/s (60-130)+ MV P1/2t 51 msec (30-60)+ MV pkA 39 cm/s Lat E' Lat e 9.36 cm/s Lat E/E' Lat E/e 9.2 Med E' Med e 10.8 cm/s Med E/E' Med E/e 8 LV Mass 2D Value 139 g LV Mass [id number] Value 83.2 g/m2 Right Ventricle Right Ventricle 14.1 cm/s 2D Left Ventricle LVIDd 4.54 cm (3.6-5.2) LVIDs 3.37 cm (2.3-3.9) LVPW LVPWd 0.94 cm Ventricular Septum IVSd 0.9 cm Aorta Ao Rtd 2.4 cm (zsc -0.7) Ao Asc 2.5 cm (zsc 0.8) LVOT LVOT 1.95 cm Ratios IVS LA Biplane LAVol I BP 17.6 ml/m2 Right Ventricle Right Ventricle 2.7 cm MMODE TA Tricuspid Annul 2.44 cm <Electronic Signature> 11/06/2024 11:55 AM Katerine Burns M.D Procedure Note Md, Generic Conversion, MD - 11/06/2024 Echocardiography Report Pat.Name: MARYANNE ZAIDI Pat.ID: [id number] .Date: 11/06/2024 Refer.MD: [id number] CANDY ABDI EWDPROV EWDPROV Exam Time: 11:17:00 AM Study Type:ECHO WITH CARDIAC DOPPLER COMP Height: 165 cm Weight: 61 kg BSA: 1.67 m2 Age: 9 1990,33Y Sex: F BP: 123/86 HR: 50 bpm Sonogrphr: Lupe Reyes RDCS Pat. Stat.:Outpatient CPT - 4: [id number] Reason for Study:Pericardial effusion Procedures: 2D, M-mode, Doppler, Color Flow Race: W ++++++++++++++++++++++++++++++++++++ SUMMARY: ++++++++++++++++++++++++++++++++++++ The left ventricular size is normal. The calculated ejection fraction is 63%. Left ventricular diastolic function is normal. The right ventricular function is normal. Small to moderate pericardial effusion (best seen in the subcostals). No evidence of tamponade. No significant valves abnormalities ++++++++++++++++++++++++++++++++++++ FINDINGS: ++++++++++++++++++++++++++++++++++++ LV: The left ventricular size is normal. The left ventricular systolic function is normal. The calculated ejection fraction is 63%. The septal E/e' is normal at < 8. The lateral E/e' is normal at <8. Left ventricular diastolic function is normal. WM: Wall motion appears normal in all segments. RV: The right ventricle size is normal. The right ventricular function is normal. IVS: Intraventricular septum is normal. LA: The left atrial volume is normal ( less than 34 ml/M2). RA: Right atrial size is normal. IAS: Atrial septum not well visualized in all views. PEREZ: Small to moderate pericardial effusion (best seen in the subcostals). No evidence of tamponade. AO: The proximal ascending aorta measures 2.5cm. PA: Unable to reliably quantitate pulmonary systolic pressure. PVn: Pulmonary veins are not assessable. SVn: Inferior vena cava shows >50% collapse with respiration consistent with normal right atrial pressure. AV: The aortic valve is trileaflet. No evidence of aortic valve stenosis. No evidence of aortic valve regurgitation. MV: Structurally normal mitral valve. No evidence of mitral regurgitation. No evidence of mitral stenosis. PV: The pulmonic valve is normal There is trace pulmonic regurgitation TV: The tricuspid valve appears structurally normal. There is trace tricuspid regurgitation. ++++++++++++++++++++++++++++++++++++ MEASUREMENTS: ++++++++++++++++++++++++++++++++++++ DOPPLER AV Forward Flow AV pkVel 129 cm/s (100-170) AV pkPG 7 mmHg MV Forward Flow MV DeTm 173 msec MV E/A 2.2 MVA P1/2t 4.31 cm2 (4-6) MV pkE 85.9 cm/s (60-130)+ MV P1/2t 51 msec (30-60)+ MV pkA 39 cm/s Lat E' Lat e 9.36 cm/s Lat E/E' Lat E/e 9.2 Med E' Med e 10.8 cm/s Med E/E' Med E/e 8 LV Mass 2D Value 139 g LV Mass [id number] Value 83.2 g/m2 Right Ventricle Right Ventricle 14.1 cm/s 2D Left Ventricle LVIDd 4.54 cm (3.6-5.2) LVIDs 3.37 cm (2.3-3.9) LVPW LVPWd 0.94 cm Ventricular Septum IVSd 0.9 cm Aorta Ao Rtd 2.4 cm (zsc -0.7) Ao Asc 2.5 cm (zsc 0.8) LVOT LVOT 1.95 cm Ratios IVS LA Biplane LAVol I BP 17.6 ml/m2 Right Ventricle Right Ventricle 2.7 cm MMODE TA Tricuspid Annul 2.44 cm <Electronic Signature> 11/06/2024 11:55 AM Katerine Burns M.D Magalie Dorsey PA-C ECHO [place] l Result documented in this encounter Visit Diagnoses Diagnosis Pericardial effusion (HHS/HCC) Unspecified disease of pericardium documented in this encounter Care Teams Inside Polisher Relationship Specialty Start Date End Date Lori Hector MD [address] [place] [address] PCP - General FAMILY PRACTICE 10/03/18 Douglas Mejia MD [address] [place] [address] Physician CARDIOLOGY 01/05/23 documented as of this encounter
--- OUTSIDE RECORDS SUMMARY | 2024-11-06 23:31 | XMS_ITS | Encounter Summary ---
Author Organization [facility] Address [address] [place] [address] Care Team Providers Care Chief Chemist Name Role Phone Lori Hector MD Primary Care Provider [phone] Douglas Mejia MD Unavailable Encounter Details Date Type Department Care Team (Late st Contact Info) Description 11/06/2024 [facility] Documentation [facility] [address] [place] [id number] Tracee De Oliveira RN Social History Tobacco Use Types Packs/Day Years Used Date Smoking Tobacco: Former Cigarettes 0.5 10 0 09/2011 - 09/2021 Smokeless Tobacco: Never Alcohol Use Standard Drinks/Week Comments Yes 0 (1 standard drink = 0.6 oz pur e alcohol) socially [facility] Utilities Answer Date Recorded In the past 12 months has [facility] electric, gas, oil, or water [employer] threatened to shut off services in your [...] any time in the past 12 m [facility], were you homeless or living in a long term (including now)? No 10/11/2024 Comments No Sex [...] documented in this encounter Progress Notes * Tracee De Oliveira RN - 11/06/2024 11:55 AM CDT The Inclusion and Exclusion were reviewed and this subject meets eligibility to enroll in the EKO Low EF 2.0 Study. The Informed Consent was reviewed in its entirety, and the subject was given ample time to consider participation in the trial. The subject agrees to participate in the EKO Low EF 2.0Study during device use and agrees to all study related tests and procedures. The Informed Consent was obtained, signed, and dated by the subject on [id number], prior to performing any study-related procedures. A copy of the Informed Consent was given to the patient for their records and the original Informed Consent will be kept in the subject???s research file. The study subject also agrees to call the coordinator if they have any further questions or decides to withdraw from the trial. At this time, all questions have been answered and contact information provided to the study subject. The patient was thanked for their time and participation in the trial. documented in this encounter Plan of Treatment Not on file documented as of this encounter Visit Diagnoses Not on filedocumented in this encounter Care Teams Chief Chemist Relationship Specialty Start Date End Date Lori Hector MD [address] [place] [address] [place] [phone] PCP - General FAMILY PRACTICE 10/03/18 Douglas Mejia MD [address] [place] [address] [place] [phone] Physician CARDIOLOGY 01/05/23 documented as of this encounter
--- OUTSIDE RECORDS SUMMARY | 2024-11-06 23:31 | XMS_ITS | Encounter Summary ---
Author Organization [facility] Address [address] [place] [address] Care Team Providers Care [employer] Rep Name Role Phone Lori Hector MD Primary Care Provider [phone] Douglas Mejia MD Unavailable Encounter Details Date Type Department Care Team (Latest Contact Info) Description 10/16/2024 [facility] Message Enc [facility] Unit [address] [place] [address] [facility], [facility] Provider discharge follow up call Social History Tobacco Use Types Packs/Day Years Used Date Smoking Tobacco: Former Cigarettes 0.5 10 0 09/2011 - 09/2021 Smokeless Tobacco: Never Alcohol Use Standard Drinks/Week Comments Yes 0 (1 standard drink = 0.6 oz pur e alcohol) socially [facility] Utilities Answer Date Recorded In the past 12 months has [facility] electric, gas, oil, or water [employer] threatened to shut off services in your [...] any time in the past 12 m [facility], were you homeless or living in [...] on filedocumented in this encounter Care Teams [employer] Rep Relationship Specialty Start Date End Date Lori Hector MD [address] [place] [address] PCP - General FAMILY PRACTICE 10/03/18 Douglas Mejia MD [address] [place] [address] Physician CARDIOLOGY 01/05/23 documented as of this encounter
--- OUTSIDE RECORDS SUMMARY | 2024-11-06 23:31 | XMS_ITS | Encounter Summary ---
Author Organization [facility] Address [address] [place] [address] Care Team Providers Care Dye Expert Name Role Phone Lori Hector MD Primary Care Provider [phone] Marty Bhagat MD Unavailable Unavailable Ghanshyam Robison MD Unavailable [phone] Douglas Mejia MD Unavailable Encounter Details Date Type Department Care Team (Late st Contact Info) Description 09/16/2022 MyChart Message Enc [facility] [address] [place], [place] [address] [employer] Provider Air Quality Message Social History Tobacco Use Types Packs/Day Years Used Date Smoking Tobacco: Former Cigarettes 0.5 10 0 09/2011 - 09/2021 Smokeless Tobacco: Never Alcohol Use Standard Drinks/Week Comments Yes 0 (1 standard drink = 0.6 oz pur e alcohol) socially PHQ-2 Answer Date Recorded Patient Health Questionnaire-2 Score 0 04/16/2022 Comments No Sex and Gender Information Value Date Recorded Sex Assigned at Female 10/11/2024 12:50 PM CDT Legal Sex Female 8:26 PM CDT Gender Identity Not on file Sexual Orientation Not on file documented as of this encounter Functional Status * RETIRED Are you deaf or do you have serious difficulty hearing Answer Date of Assessment Author Status No 07/29/2021 9:07 AM CDT Activ e documented as of this encounter Plan of Treatment Not on file documented as of this encounter Visit Diagnoses Not on filedocumented in this encounter Additional Health Concerns Infection Onset Date Last Indicated Resolved Time COVID-19 Rule Out 12/01/2023 12/01/202311/3012/01/2023 5:08 PM CDT COVID-19 Rule Out 02/09/2024 02/09/2024 02/09/2024 9:12 AM H[employer]ORTER documented as of this encounter Care Teams Dye Expert Relationship Specialty Start Date End Date Lori Hector MD [address] [place] [address] PCP - General FAMILY PRACTICE 10/03/18 Marty Bhagat MD [address] [place] [address] Consulting Physician INTERVENTIONAL CARDIOLOGY 03/28/20 01/04/23 Ghanshyam Robison MD [address] [place] [address] Referring Physician EMERGENCY MEDICINE 01/05/23 Douglas Mejia MD [address] [place] [address] Physician CARDIOLOGY 01/05/23 documented as of this encounter
--- OUTSIDE RECORDS SUMMARY | 2024-11-06 23:31 | XMS_ITS | Clinical Summary ---
Author Organization [facility] Address [address] [place] [address] Care Team Providers Care Dust Control Engineer Name Role Phone Lori Hector MD Primary Care Provider [phone] Douglas Mejia MD Unavailable Allergies No known active allergies Medications topiramate (TOPAMAX) 25 MG tablet Take 3 tablets (75 mg total) by mouth every morning. 02/08/20 24 Active ondansetron (ZOFRAN-ODT) 4 MG disintegrating tabletIndications:N ausea and vomiting, unspecified vomiting type,Viral gastroenteritis 1 tablet every 4-6 hours as needed for nausea/vomi ting 20 tablet 02/09/20 24 Active levETIRAcetam (KEPPRA) 750 MG tablet Take 2 tablets (1,500 mg total) by mouth every morning. Active levETIRAcetam (KEPPRA) 750 MG tablet Take 1 tablet (750 mg total) by mouth every evening. Active traZODone (DESYREL) 100 MG tablet Take 1 tablet (100 mg total) by mouth nightly as needed for Sleep. Active levETIRAcetam (KEPPRA) 750 MG tabletIndications:N onintractable epilepsy without status epilepticus, unspecified epilepsy type (CMS/HCC HHS/HCC),Myoclonus Take 1 tablet (750 mg total) by mouth 2 (two) times daily. 180 tablet 1 04/16/19 23 025 Discontinu ed(Error) topiramate (TOPAMAX) 50 MG Tab Take 1 tablet (50 mg total) by mouth daily. 025 Discontinu ed(Error) guaiFENesin ER (MUCINEX) 600 MG 12 hr tabletIndications:F luid level behind tympanic membrane of both ears Take 1 tablet (600 mg total) by mouth 2 (two) times daily. 28 tablet 02/09/20 24 025 Discontinu ed(Error) docusate sodium (COLACE) 100 MG capsule Take 1 capsule (100 mg total) by mouth 2 (two) times daily for 10 days. 10 capsule 10/14/19 25 025 Active Problems Problem Noted Date Diagnosed Date Syncope 10/11/2024 Closed fracture of base of f ifth metatarsal bone of right foot 08/04/2023 High ankle sprain of right l ower extremity, subsequent encounter 08/04/2023 Foot sprain, left, initial encounter 08/04/2023 Essential hypertension, benign 10/08/2021 Hyperventilation syndrome 03/05/2021 Patellofemoral pain syndrome of right knee 08/11 PSVT (paroxysmal supraventricular tachycardia) ( [facility]) 05/31/2020 Pericardial effusion ([facility]) 04/03/2020 Mild intermittent asthma ([facility]) 04/03/2020 Epilepsy ([facility]) 12/04/2010 Resolved Problems Problem Noted Date Diagnosed Date Resolved Date Precordial pain 10/08/2021 05/10/2023 Dyspnea on exertion 04/03/2020 05/14/19 22 Encounters Date Type Department Care Team Description 11/06/2024 12:45 PM CDT Office Visit [facility] [address] [place] [address] Katerine Burns MD Heart Problem 11/06/2024 11:00 AM CDT Hospital Encounter [facility] [address] [place] [address] Magalie Dorsey PA-C Arrived 11/06/2024 Telephone [facility] [address] [place] [address] Katerine Burns MD Schedule Test 11/06/2024 [facility] [place] [address] [place] [address] Tracee De Oliveira RN 11/06/2024 Travel 10/24/2024 Telephone [facility] [address] [place] [address] Katerine Burns MD Error 10/16/2024 MyChart Message Enc [facility] [address] [place] [address] [facility] follow up call 10/16/2024 Hospital Follow-up Call [facility] [address] [place] [address] Jackie Warner RN 10/16/2024 Telephone [facility] [address] [place] [address] Katerine Burns MD Concerns; Question 10/13/2024 Telephone [facility] [address] [place] [address] Katerine Burns MD Holter Monitor 10/13/2024 Telephone [facility] [place] [address] [place] [address] Magalie Dorsey PA-C Appointment Request; Schedule Test 10/11/2024 11:05 PM CDT - 10/13/2024 2:36 PM CDT Hospital Encounter [facility] [address] [place] [address] Riley Woods MD Shackour, Salim, MD Boddu, Lavanya, MD Discharge Disposition: Home or Self Care (Routine Discharge) 10/11/2024 12:41 PM CDT - 10/11/2024 9:[address] [facility] Emergency Room [id number] [place] [id number] Rojas Welch MD Dehydration Discharge Disposition: Transfer to Acute Care Hospital 10/11/2024 Travel from Last 3 Months Immunizations Immunization Administration Dates Next Due Dtap 01/08/1997 Dtp 03/17/1994, 4,05/06/1993,1992 Flucelvax 6 Months+ (Prefill ed Syringe) 01/03/2020 HPV4 (Gardasil) 02/23/2008,10/27/2007,08/25/2007 MMR 01/08/1997,1993 Opv 01/08/1997, 4,05/06/1993,1992 Family History Medical History Relation Comments Asthma Brother Hypertension Father Diabetes Maternal Grandfather No Known Problems Maternal Grandmother Hypertension Mother Cancer Paternal Grandfather Diabetes Paternal Grandfather Diabetes Paternal Grandmother No Known Problems Sister 1 No Known Problems Sister 2 Thyroid Sister 3 thyroid cancer Sister 3 Relation Status Comments Brother Alive Father Alive Maternal Grandfather Maternal Grandmother Alive Mother Alive Paternal Grandfather Paternal Grandmother Sister 1 Alive Sister 2 Alive Sister 3 Alive Social History Tobacco Use Types Packs/Day Years Used Date Smoking Tobacco: Former Cigarettes 0.5 10 0 09/2011 - 09/2021 Smokeless Tobacco: Never Tobacco Cessation:Counseling Given: Yes Alcohol Use Standard Drinks/Week Comments Yes 0 (1 standard drink = 0.6 oz pur e alcohol) socially [facility] [employer] Answer Date Recorded In the past 12 months has e [employer], gas, oil, or water [employer] threatened to shut off services in your [...] any time in the past 12 m [facility], were you homeless or living in a [place] health care facility (including now)? No 10/11/2024 Comments No Sex and Gender Information Value Date Recorded Sex Assigned at Female 10/11/2024 12:50 PM CDT Legal Sex Female 8:26 PM CDT Gender Identity Not on file Sexual Orientation Not on file Last Filed Vital Signs Vital Sign Reading Time Taken Comments Blood Pressure 106/68 11/06/2024 12:24 PM CDT Pulse 80 11/06/2024 12:24 PM CDT Temperature 36.7 C (98.1 F) 10/13/2024 8:28 AM CDT Respiratory Rate 16 11/06/2024 12:24 PM CDT Oxygen Saturation 98% 11/06/2024 12:24 PM CDT Inhaled Oxygen Concentration - - Weight 63 kg (139 lb) 11/06/2024 12:24 PM CDT Height 165.1 cm (5' 5) 11/06/2024 12:24 PM CDT Body Mass Index 23.13 11/06/2024 12:24 PM CDT Plan of Treatment Health Maintenance Due Date Last Done Comments Annual Physical 12/17/1995 Hepatitis C 2010 DTaP, Tdap and Td Vaccines (2 - Tdap) 12/17/2011 01/08/1997, 03/17/1994, 07/16/1993, Additional history exists Hepatitis B Vaccines (1 of 3 - 19+ 3-dose series) 12/17/2011 Pneumococcal Vaccine: Pediatrics (0 to 5 Years) and At-Risk Patients (6 to 49 Years) (1 of 2 - PCV) 12/17/2011 COVID-19 Vaccine (1 - season) 2023 PHQ-2 (Physician [place]) 03/22/2024 HPV Vaccines Completed 02/23/2008, 09/2007, 08/25/2007 Meningococcal B Vaccine Aged Out No l onger eligible based on patient's age to complete this topic Meningococcal Vaccine Aged Out No migel eladio eligible based on patient's age to complete this topic RSV Immunizations Under 20 Months Aged Out No longer eligible based on patient's age to complete this topic Procedures Procedure Name Priority Date/Time Associated Diagnosis Comments USE ECHOCARDIOGRAM IREEN 11/06/2024 11 :33 AM CDT Pericardial effusion (HHS/HCC) BASIC METABOLIC PANEL Routine 10/13/2024 5:[address] HEAD WO CON Today 10/12/2024 4:24 PM CDT CTA CHEST PE PROTOCOL Today 10/12/2024 4:24 PM CDT USV VAST TEAM MIDLINE INSERT >5YR Today 10/12/2024 3:45 PM CDT USE ECHOCARDIOGRAM Today 10/12/2024 9: 38 AM CDT SED RATE, ERYTHROCYTE (ESR) Routine 10/12/2024 5:23 AM CDT C-REACTIVE PROTEIN Routine 10/12/2024 5: 23 AM CDT THYROXINE, FREE (FT4) Routine 10/12/2024 5:23 AM CDT TSH W/REFLEX Routine 10/12/2024 5:23 AM CDT TROPONIN, QUANT TIMED 10/12/2024 5:23 AM CDT MAGNESIUM Routine 10/12/2024 5:23 AM CDT COMPREHENSIVE METABOLIC PANEL Routine 10/12/2024 5:23 AM CDT PROTHROMBIN TIME, VENOUS Routine 10/12/2024 5:23 AM CDT CBC W/DIFF AUTOMATED Routine 10/12/2024 5:23 AM CDT TROPONIN, QUANT TIMED 10/11/2024 11:47 PM CDT TROPONIN, QUANT STAT 10/11/2024 4:45 PM CDT XR CHEST PORTABLE STAT 10/11/2024 4:3 2 PM CDT ECG 12-LEAD Routine 10/11/2024 4:[address] ABD+PEL WO CON STAT 10/11/2024 1:4 5 PM CDT CRITICAL CARE Routine 10/11/2024 1:36 PM CDT URINALYSIS, AUTO, COMPLETE STAT 10/11/2024 1:26 PM CDT COMPREHENSIVE METABOLIC PANEL STAT 10/11/2024 12:51 PM CDT CBC W/DIFF AUTOMATED STAT 10/11/2024 12:51 PM CDT from Last 3 Months Results * USE ECHOCARDIOGRAM (11/06/2024 11:33 AM CDT) Anatomical Region Laterality Modality Cardiac Echocardiogram 11/06/2024 11:1 7 AM CDT Narrative 11/06/2024 11:55 AM CDT Echocardiography Report Pat.Name: MARYANNE CLEMONS Pat.ID: [id number] .Date: 11/06/2024 : [id number] CANDY ABDI EWDPROV EWDPROV Exam Time: 11:17:00 AM Study Type:ECHO WITH CARDIAC DOPPLER COMP Height: 165 cm Weight: 61 kg BSA: 1.67 m2 Age: 9 1990,33Y Sex: F BP: 123/86 HR: 50 bpm Sonogrphr: Lupe Reyes RDCS Pat. Stat.:Outpatient CPT - 4: 92898 Reason for Study:Pericardial effusion Procedures: 2D, M-mode, [...] Mass 2D Value 139 g LV Mass [id number] Value 83.2 g/m2 Right Ventricle Right Ventricle [...] Burns M.D Procedure Note Md, Generic Conversion, - 11/06/2024 Echocardiography Report Pat.Name: MARYANNE CLEMONS Pat.ID: [id number] .Date: 11/06/2024 Refer.MD: [id number] CANDY ABDI EWDPROV EWDPROV Exam Time: 11:17:00 AM Study Type:ECHO WITH CARDIAC DOPPLER COMP Height: 165 cm Weight: 61 kg BSA: 1.67 m2 Age: 9 1990,33Y Sex: F BP: 123/86 HR: 50 bpm Sonogrphr: Lupe Reyes RDCS Pat. Stat.:Outpatient CPT - 4: 66125 Reason for Study:Pericardial effusion Procedures: 2D, M-mode, [...] Mass 2D Value 139 g LV Mass [id number] Value 83.2 g/m2 Right Ventricle Right Ventricle [...] Magalie Dorsey PA-C ECHO Louisa [facility] Result * (ABNORMAL) BASIC METABOLIC PANEL (10/13/2024 5:07 AM CDT) SODIUM S/P/B 139 136 - 145 MMOL/L 10/13/2024 5:53 AM CDT [facility] POTASSIUM S/P/B 3.7 3.5 - 5.1 MMOL/L 10/13/2024 5:53 AM CDT [facility] CHLORIDE S/P/B 112 97 - 115 MMOL/L 10/13/2024 5:53 AM CDT [facility] CO2 20.0(L) 21.0 - 32.0 MMOL/L 10/13/2024 5:53 AM CDT [facility] GLUCOSE 77 74 - 106 MG/DL 10/13/2024 5:53 AM CDT [facility] BUN 9 7 - 18 MG/DL 10/13/2024 5:53 AM CDT [facility] CREATININE S/P/B 0.74 0.55 - 1.02 MG/DL 10/13/2024 5:53 AM CDT [facility] CALCIUM S/P/B 9.2 8.5 - 10.1 MG/DL 10/13/2024 5:53 AM CDT [facility] ANION GAP 7.0 2.0 - 10.0 MMOL/L 10/13/2024 5:53 AM CDT [facility] OSMOLALITY (CALC) 285 MOSM/KG 025 5:53 AM CDT [facility] Comment:REFERENCE RANGE NOT ESTABLISHED GFR ESTIMATE >90 >90 ML/MIN/1. 73 M2 10/13/2024 5:53 AM CDT [facility] GFR NOTES GFR REFERENCE S: 10/13/2024 5:53 AM CDT [facility] Comment: THE ESTIMATED GFR IS CALCULATED USING THE 2020 CKD-EPI EQUATION. THE FOLLOWING CATEGORIES FOR GRADING RENAL FUNCTION ARE RECOMMENDED BY THE INTERNATIONAL SOCIETY OF NEPHROLOGY (KDIGO 2012 CLINICAL PRACTICE GUIDELINE). G1,NORMAL OR HIGH: >89 ml/min/1.73 m2 G2,MILDLY DECREASED: 60-89 ml/min/1.73 m2 G3A,MILDLY TO MODERATELY DECREASED: 45-59 ml/min/1.73 m2 G3B,MODERATELY TO SEVERELY DECREASED: 30-44 ml/min/1.73 m2 G4,SEVERELY DECREASED: 15-29 ml/min/1.73 m2 G5,KIDNEY FAILURE: <15 ml/min/1.73 m2 10/13/2024 5:07 AM CDT Magalie Dorsey PA-C LABORATORY [place] l Result [facility] [address] [place] [address], [id number] * CTA CHEST PE PROTOCOL (10/12/2024 4:24 PM CDT) Anatomical Region Laterality Modality Chest Computed Tomogra phy 10/12/2024 7:11 PM CDT Impressions 10/12/2024 7:15 PM CDT IMPRESSION: 1. No evidence of pulmonary emboli. 2. Moderate pericardial effusion. 3. Tiny bilateral pleural effusions. Referred By: ROJAS WELCH Interpreted By: Cristhian Will MD, 10/12/2024 7:11 PM Narrative 10/12/2024 7:15 PM CDT [facility] [address] [place], [place] [address] Examination: CTA CHEST PE PROTOCOL Exam time: 10/12/2024 4:13 PM Clinical history: Pericardial effusion Comparison: 12/03/2023 CT chest with contrast Technique: CTA chest was obtained following bolus intravenous injection of 80 mL Isovue 370 contrast material. Coronal and sagittal multiplanar reconstruction images were obtained. Coronal MIP, maximum intensity projection images were performed. CT dose reduction techniques were utilized. Findings: There is good opacification of the pulmonary arterial system from at least the level of the pulmonary outflow tract to the subsegmental pulmonary artery branches within each lung and there are no findings suggestive of pulmonary emboli. There is no evidence of supraclavicular, axillary, mediastinal, or hilar adenopathy. Cardiac chambers appear unremarkable in size. There is a moderate pericardial effusion. Pericardial effusion appears increased when compared to prior exam. Thoracic aorta is normal in caliber and enhancement. There are tiny bilateral pleural effusions. There is no evidence of significant atelectasis within either lung. No evidence of pulmonary consolidation. Limited images of the upper abdomen demonstrate previous cholecystectomy changes with no other significant abnormality. No evidence of bone destructive changes. Procedure Note Cristhian Will MD - 10/12/[address] [address] Examination: CTA CHEST PE PROTOCOL Exam time: 10/12/2024 4:13 PM Clinical history: Pericardial effusion Comparison: 12/03/2023 CT chest with contrast Technique: CTA chest was obtained following bolus intravenous injection of80 mL Isovue 370 contrast material. Coronal and sagittal multiplanarreconstruction images were obtained. Coronal MIP, maximum intensityprojection images were performed. CT dose reduction techniques wereutilized. Findings: There is good opacification of the pulmonary arterial systemfrom at least the level of the pulmonary outflow tract to the subsegmentalpulmonary artery branches within each lung and there are no findingssuggestive of pulmonary emboli. There is no evidence of supraclavicular, axillary, mediastinal, or hilaradenopathy. Cardiac chambers appear unremarkable in size. There is a moderatepericardial effusion. Pericardial effusion appears increased whencompared to prior exam. Thoracic aorta is normal in caliber andenhancement. There are tiny bilateral pleural effusions. There is no evidence of significant atelectasis within either lung. Noevidence of pulmonary consolidation. Limited images of the upper abdomen demonstrate previous cholecystectomychanges with no other significant abnormality. No evidence of bone destructive changes. IMPRESSION: 1. No evidence of pulmonary emboli. 2. Moderate pericardial effusion. 3. Tiny bilateral pleural effusions. Referred By: ROJAS WELCH Interpreted By: Cristhian Will MD, 10/12/2024 7:11 PM Arelis Bales MD CT Final Result * CT HEAD WO CON (10/12/2024 4:24 PM CDT) Anatomical Region Laterality Modality Head Computed Tomogra phy 10/12/2024 7:09 PM CDT Impressions 10/12/2024 7:11 PM CDT IMPRESSION: No acute intracranial abnormality identified. Referred By: ROJAS WELCH Interpreted By: Cristhian Will MD, 10/12/2024 7:09 PM Narrative 10/12/2024 7:11 PM CDT [address] [address] Examination: CT HEAD WO CON Exam time: 10/12/2024 4:13 PM Clinical history: Syncope Comparison: 01/18/2024 CT head Technique: Axial images were obtained from the skull base superiorly through the vertex without intravenous contrast material injection. Coronal and sagittal multiplanar reconstruction images were obtained. CT dose reduction techniques were utilized. Findings: There is no evidence of intracranial hemorrhage. There is no evidence of effacement of cerebral sulci or mass effect upon the brain. No evidence of focal abnormal density involving the brain. Ventricles are normal in size. Quadrigeminal and basilar cisterns appear unremarkable. Pituitary, pineal, and craniovertebral junction regions appear unremarkable. Visualized paranasal sinuses appear clear. Mastoid air cells appear clear. Procedure Note Cristhian Will MD - 10/12/[address] [address] Examination: CT HEAD WO CON Exam time: 10/12/2024 4:13 PM Clinical history: Syncope Comparison: 01/18/2024 CT head Technique: Axial images were obtained from the skull base superiorlythrough the vertex without intravenous contrast material injection.Coronal and sagittal multiplanar reconstruction images were obtained. CTdose reduction techniques were utilized. Findings: There is no evidence of intracranial hemorrhage. There is noevidence of effacement of cerebral sulci or mass effect upon the brain.No evidence of focal abnormal density involving the brain. Ventricles arenormal in size. Quadrigeminal and basilar cisterns appear unremarkable.Pituitary, pineal, and craniovertebral junction regions appearunremarkable. Visualized paranasal sinuses appear clear. Mastoid aircells appear clear. IMPRESSION: No acute intracranial abnormality identified. Referred By: ROJAS WELCH Interpreted By: Cristhian Will MD, 10/12/2024 7:09 PM us Arelis Bales MD CT Final Result * USV VAST TEAM MIDLINE INSERT >5YR (10/12/2024 3:45 PM CDT) Anatomical Region Laterality Modality NA Vascular Ultraso und 10/12/2024 3:19 PM CDT Narrative 10/12/2024 3:19 PM CDT This report does not contain a radiologist's interpretation. Please review associated procedure and/or operative report. Procedure Note Maria Elena Jimenez MD - 10/12/2024 This report does not contain a radiologist's interpretation. Please review associated procedure and/or operative report. us Arelis Bales MD [facility] Final Result * USE ECHOCARDIOGRAM (10/12/2024 9:38 AM CDT) Anatomical Region Laterality Modality Cardiac Echocardiogram 10/12/2024 8:27 AM CDT Narrative 10/13/2024 7:34 PM CDT Echocardiography Report Pat.Name: MARYANNE CLEMONS Pat.ID: [id number] St.Date: 10/12/2024 Refer.: [id number] ISABEL Gonzalez EWDPROV EWDPROV Exam Time: 8:27:00 AM Study Type:ECHO WITH CARDIAC DOPPLER COMP Height: 65 in Weight: 137 lb BSA: 1.68 m2 Age: 9 1990,33Y Sex: F BP: 114/76 HR: 66 bpm Sonogrphr: Zabrina Hightower [facility] Pat. Stat.:Inpatient Room: [facility] Reason for Study:Pericardial effusion Procedures: 2D, M-mode, Doppler, Color Flow Race: W ++++++++++++++++++++++++++++++++++++ SUMMARY: ++++++++++++++++++++++++++++++++++++ The left ventricular size is normal. The left ventricular systolic function is normal. The calculated ejection fraction is 70%. Left ventricular diastolic function is normal. The right ventricle is normal. Moderate pericardial effusion. It is probably not hemodynamically signficant. Trace mitral regurgitation. A trace of tricuspid regurgitation. ++++++++++++++++++++++++++++++++++++ FINDINGS: ++++++++++++++++++++++++++++++++++++ LV: The left ventricular size is normal. The left ventricular systolic function is normal. The calculated ejection fraction is 70%. No concentric left ventricular hypertrophy. The average E/e' is normal at <8. Left ventricular diastolic function is normal. Left ventricular relaxation is normal. WM: Wall motion appears normal in all segments. RV: The right ventricular size is normal. Right ventricular systolic function is normal. LA: The left atrial volume is normal ( less than 34 ml/M2). RA: The right atrial size is normal. PEREZ: Moderate pericardial effusion. Limited assessment of Trans mitral /tricuspid Doppler. No significant RA compression. PLE: Pleural effusion is not present. AO: Normal aortic root. SVn: Inferior vena cava shows >50% collapse with respiration consistent with normal right atrial pressure. AV: Structurally normal aortic valve. The aortic valve is trileaflet. No evidence of aortic valve stenosis. No evidence of aortic regurgitation. MV: Structurally normal mitral valve. Trace mitral regurgitation. PV: The pulmonic valve is normal There is trace pulmonic regurgitation TV: Structurally normal tricuspid valve. A trace of tricuspid regurgitation. ++++++++++++++++++++++++++++++++++++ MEASUREMENTS: ++++++++++++++++++++++++++++++++++++ DOPPLER LVOT LVOTpkPG 5 mmHg LVOTmnPG 4 mmHg LVOTpkVel 114 cm/s (70-110)+* LVOT SV 84 ml LVOT TVI 26.6 cm AV Forward Flow AV TVI 35.1 cm AV pkPG 10 mmHg AV pkVel 156 cm/s (100-170)+ Area (TVI) 2.38 cm2 (3-5)* AV mnVel 114 cm/s Area (Micha) 2.29 cm2 (3-5)* AV mnPG 6 mmHg MV Forward Flow MV DeTm 313 msec MV pkE 75.5 cm/s (60-130) MV E/A 1.6 MV pkA 47 cm/s Lat E' Lat e 14 cm/s Lat E/E' Lat E/e 5.4 Med E' Med e 12.9 cm/s Med E/E' Med E/e 5.9 Aortic Valve Aortic Valve Ar 1.42 Aortic Valve Ve 0.73 AV DI Value 0.8 ALVIN (VTI) Index Value 1.42 LV Mass 2D Value 120 g LV Mass [id number] Value 71.4 g/m2 RA Volume Atrial Reynoso 5.45 cm Atrial Reynoso 12.1 cm2 Atrial Reynoso 21.8 ml Right Ventricle Right Ventricle 12.8 cm/s 2D Left Ventricle LVIDd 4.07 cm (3.6-5.2) LV EF(Bi-Plane) 69.9 % (55-75) LVIDs 2.57 cm (2.3-3.9) LVPW LVPWd 0.95 cm Ventricular Septum IVSd 0.93 cm Left Atrium LA a-p 3.41 cm (2.8-3.4)* Aorta Ao Rtd 2.87 cm (zsc 0.8) LVOT LVOT 2 cm Ratios IVS LA Biplane LAVol I BP 24.8 ml/m2 Right Atrium Minor Bradford 2.14 cm Right Ventricle Right Ventricle 2.81 cm Right Ventricle 2.07 cm MMODE TA Tricuspid Annul 1.87 cm <Electronic Signature> 10/13/2024 07:34 PM Tess Maria M.D. Procedure Note Tess Maria MD - 10/13/2024 Echocardiography Report Pat.Name: MARYANNE CLEMONS Pat.ID: [id number] .Date: 10/12/2024 Refer.MD: [id number] ISABEL Gonzalez EWDPROV EWDPROV Exam Time: 8:27:00 AM Study Type:ECHO WITH CARDIAC DOPPLER COMP Height: 65 in Weight: 137 lb BSA: 1.68 m2 Age: 9 1990,33Y Sex: F BP: 114/76 HR: 66 bpm Sonogrphr: Zabrina Hightower RDCS Pat. Stat.:Inpatient Room: [facility] Reason for Study:Pericardial effusion Procedures: 2D, M-mode, Doppler, Color Flow Race: W ++++++++++++++++++++++++++++++++++++ SUMMARY: ++++++++++++++++++++++++++++++++++++ The left ventricular size is normal. The left ventricular systolic function is normal. The calculated ejection fraction is 70%. Left ventricular diastolic function is normal. The right ventricle is normal. Moderate pericardial effusion. It is probably not hemodynamically signficant. Trace mitral regurgitation. A trace of tricuspid regurgitation. ++++++++++++++++++++++++++++++++++++ FINDINGS: ++++++++++++++++++++++++++++++++++++ LV: The left ventricular size is normal. The left ventricular systolic function is normal. The calculated ejection fraction is 70%. No concentric left ventricular hypertrophy. The average E/e' is normal at <8. Left ventricular diastolic function is normal. Left ventricular relaxation is normal. WM: Wall motion appears normal in all segments. RV: The right ventricular size is normal. Right ventricular systolic function is normal. LA: The left atrial volume is normal ( less than 34 ml/M2). RA: The right atrial size is normal. PEREZ: Moderate pericardial effusion. Limited assessment of Trans mitral /tricuspid Doppler. No significant RA compression. PLE: Pleural effusion is not present. AO: Normal aortic root. SVn: Inferior vena cava shows >50% collapse with respiration consistent with normal right atrial pressure. AV: Structurally normal aortic valve. The aortic valve is trileaflet. No evidence of aortic valve stenosis. No evidence of aortic regurgitation. MV: Structurally normal mitral valve. Trace mitral regurgitation. PV: The pulmonic valve is normal There is trace pulmonic regurgitation TV: Structurally normal tricuspid valve. A trace of tricuspid regurgitation. ++++++++++++++++++++++++++++++++++++ MEASUREMENTS: ++++++++++++++++++++++++++++++++++++ DOPPLER LVOT LVOTpkPG 5 mmHg LVOTmnPG 4 mmHg LVOTpkVel 114 cm/s (70-110)+* LVOT SV 84 ml LVOT TVI 26.6 cm AV Forward Flow AV TVI 35.1 cm AV pkPG 10 mmHg AV pkVel 156 cm/s (100-170)+ Area (TVI) 2.38 cm2 (3-5)* AV mnVel 114 cm/s Area (Micha) 2.29 cm2 (3-5)* AV mnPG 6 mmHg MV Forward Flow MV DeTm 313 msec MV pkE 75.5 cm/s (60-130) MV E/A 1.6 MV pkA 47 cm/s Lat E' Lat e 14 cm/s Lat E/E' Lat E/e 5.4 Med E' Med e 12.9 cm/s Med E/E' Med E/e 5.9 Aortic Valve Aortic Valve Ar 1.42 Aortic Valve Ve 0.73 AV DI Value 0.8 ALVIN (VTI) Index Value 1.42 LV Mass 2D Value 120 g LV Mass [id number] Value 71.4 g/m2 RA Volume Atrial Reynoso 5.45 cm Atrial Reynoso 12.1 cm2 Atrial Reynoso 21.8 ml Right Ventricle Right Ventricle 12.8 cm/s 2D Left Ventricle LVIDd 4.07 cm (3.6-5.2) LV EF(Bi-Plane) 69.9 % (55-75) LVIDs 2.57 cm (2.3-3.9) LVPW LVPWd 0.95 cm Ventricular Septum IVSd 0.93 cm Left Atrium LA a-p 3.41 cm (2.8-3.4)* Aorta Ao Rtd 2.87 cm (zsc 0.8) LVOT LVOT 2 cm Ratios IVS LA Biplane LAVol I BP 24.8 ml/m2 Right Atrium Minor Bradford 2.14 cm Right Ventricle Right Ventricle 2.81 cm Right Ventricle 2.07 cm MMODE TA Tricuspid Annul 1.87 cm <Electronic Signature> 10/13/2024 07:34 PM Tess Maria M.D. Teresa Nieves MD ECHO Final Result * TSH W/REFLEX (10/12/2024 5:23 AM CDT) TSH 3.310 0.358 - 3.740 uIU/ML 10/12/2024 6:11 AM CDT [facility] Comment: ASSAY PERFORMED BY CHEMILUMINESCENCE METHODOLOGY USING SIEMENS DIMENSION VISTA REAGENT. PATIENT RESULTS DETERMINED BY ASSAYS USING DIFFERENT MANUFACTURERS FOR METHODS MAY NOT BE COMPARABLE. 10/12/2024 5:23 AM CDT Teresa Nieves MD LABORATORY Final Result [facility] [address] [place] [address], [phone] * SED RATE, ERYTHROCYTE (ESR,WSR) (10/12/2024 5:23 AM CDT) Pathologist [facility] ESR <1 0 - 20 MM/HR 10/12/2024 1:25 PM CDT [facility] 10/12/2024 5:23 AM CDT Magalie Dorsey PA-C LABORATORY Louisa l Result Performing Organization Address [facility] Co de Phone Number [facility] [address] [place] [address], [phone] * (ABNORMAL) PROTHROMBIN TIME, VENOUS (10/12/2024 5:23 AM CDT) Pathologist [facility] PROTIME 13.4(H) 9.4 - 12.5 SEC 10/12/2024 5:56 AM CDT [facility] INR 1.2(H) 0.8 - 1.1 10/12/2024 5:56 AM CDT [facility] 10/12/2024 5:23 AM CDT Teresa Nieves MD LABORATORY Final Result Performing Organization Address [facility] de Phone Number [facility] [address] [place] [address], [phone] * (ABNORMAL) COMPREHENSIVE METABOLIC PANEL (10/12/2024 5:23 AM CDT) Only the most recent of2 resultswithin the time period is included. Pathologist [facility] SODIUM S/P/B 139 136 - 145 MMOL/L 10/12/2024 6:11 AM CDT [facility] POTASSIUM S/P/B 3.3(L) 3.5 - 5.1 MMOL/L 10/12/2024 6:11 AM CDT [facility] CHLORIDE S/P/B 113 97 - 115 MMOL/L 10/12/2024 6:11 AM CDT [facility] CO2 22.6 21.0 - 32.0 MMOL/L 10/12/2024 6:11 AM CDT [facility] GLUCOSE 72(L) 74 - 106 MG/DL 10/12/2024 6:11 AM CDT [facility] BUN 10 7 - 18 MG/DL 10/12/2024 6:11 AM T [facility] CREATININE S/P/B 0.81 0.55 - 1.02 MG/DL 10/12/2024 6:[address] [facility] CALCIUM S/P/B 8.7 8.5 - 10.1 MG/DL 10/12/2024 6:11 AM T [facility] BILIRUBIN TOTAL S/P/B 0.7 0.2 - 1.0 MG/DL 10/12/2024 6:11 AM T [facility] ALKALINE PHOSPHATASE S/P/B 51 37 - 98 U/L 10/12/2024 6:[address] [facility] AST 12(L) 15 - 37 U/L 10/12/2024 6:[address] [facility] ALT 29 13 - 56 U/L 10/12/2024 6:[address] [facility] TOTAL PROTEIN S/P/B 6.7 6.4 - 8.2 G/DL 10/12/2024 6:[address] [facility] ALBUMIN S/P/B 3.9 3.4 - 5.0 G/DL 10/12/2024 6:[address] [facility] ANION GAP 3.4 2.0 - 10.0 MMOL/L 10/12/2024 6:[address] [facility] OSMOLALITY (CALC) 286 MOSM/KG 025 6:[address] [facility] Comment:REFERENCE RANGE NOT ESTABLISHED GFR ESTIMATE >90 >90 ML/MIN/1. 73 M2 10/12/2024 6:[address] [facility] GFR NOTES GFR REFERENCE S: 10/12/2024 6:[address] [facility] Comment: THE ESTIMATED GFR IS CALCULATED USING THE 2020 CKD-EPI EQUATION. THE FOLLOWING CATEGORIES FOR GRADING RENAL FUNCTION ARE RECOMMENDED BY THE INTERNATIONAL SOCIETY OF NEPHROLOGY (KDIGO 2012 CLINICAL PRACTICE GUIDELINE). G1,NORMAL OR HIGH: >89 ml/min/1.73 m2 G2,MILDLY DECREASED: 60-89 ml/min/1.73 m2 G3A,MILDLY TO MODERATELY DECREASED: 45-59 ml/min/1.73 m2 G3B,MODERATELY TO SEVERELY DECREASED: 30-44 ml/min/1.73 m2 G4,SEVERELY DECREASED: 15-29 ml/min/1.73 m2 G5,KIDNEY FAILURE: <15 ml/min/1.73 m2 10/12/2024 5:23 AM CDT Teresa Nieves MD LABORATORY Final Result Performing Organization Address [facility] Co de Phone Number [facility] [address] [place] [address], [phone] * C-REACTIVE PROTEIN (10/12/2024 5:23 AM CDT) C-REACTIVE PROTEIN <0.29 <0.80 mg/dL 10/12/2024 1:41 PM CDT [facility] 10/12/2024 5:23 AM CDT Magalie Doresy PA-C LABORATORY Louisa l Result Performing Organization Address [facility] Co de Phone Number [facility] [address] [place] [address], [phone] * (ABNORMAL) CBC W/DIFF AUTOMATED (10/12/2024 5:23 AM CDT) Only the most recent of2 resultswithin the time period is included. WBC 4.98 4.00 - 10.80 x10'3/uL 10/12/2024 5:31 AM CDT [facility] RBC 4.14 4.10 - 5.40 x10'6/uL 10/12/2024 5:31 AM CDT [facility] HGB 13.0 12.0 - 16.0 G/DL 10/12/2024 5:31 AM CDT [facility] HCT 36.8 36.0 - 47.0 % 10/12/2024 5:31 AM CDT [facility] MCV 88.9 78.0 - 100.0 FL 10/12/2024 5:31 AM CDT [facility] MCH 31.4(H) 27.0 - 31.0 PG 10/12/2024 5:31 AM CDT [facility] MCHC 35.3 33.0 - 36.0 G/DL 10/12/2024 5:31 AM CDT [facility] RDW 11.8 11.5 - 14.5 % 10/12/2024 5:31 AM CDT [facility] PLT 236 150 - 350 x10'3/uL 10/12/2024 5:31 AM CDT [facility] MPV 10.7(H) 7.4 - 10.4 FL 10/12/2024 5:31 AM CDT [facility] DIFFERENTIAL TYPE AUTOMATED DIFFERENTIAL 10/12/2024 5:31 AM CDT [facility] SEG NEUTROPHILS 50.6 % 5:31 AM CDT [facility] LYMPHOCYTES 40.4 % 10/12/2024 5:31 AM CDT [facility] MONOCYTES 5.6 % 10/12/2024 5:31 AM CDT [facility] EOSINOPHILS 2.4 % 10/12/2024 5:31 AM CDT [facility] BASOPHILS 0.8 % 10/12/2024 5:31 AM CDT [facility] IMMATURE GRANS % 0.2 % 10/13/19 5:31 AM CDT [facility] ABS. NEUTROPHILS 2.52 1.60 - 8.30 x10'3/uL 10/12/2024 5:31 AM CDT [facility] ABS. LYMPHOCYTES 2.01 0.80 - 4.70 x10'3/uL 10/12/2024 5:31 AM CDT [facility] ABS. MONOCYTES 0.28 0.00 - 1.50 x10'3/uL 10/12/2024 5:31 AM CDT [facility] ABS. EOSINOPHILS 0.12 0.00 - 0.40 x10'3/uL 10/12/2024 5:31 AM CDT [facility] ABS. BASOPHILS 0.04 0.00 - 0.20 x10'3/uL 10/12/2024 5:31 AM CDT [facility] ABS. IMMATURE GRANULOCYTES 0.01 0.00 - 0.03 x10'3/uL 10/12/2024 5:31 AM CDT [facility] ABS. NUCLEATED RBC'S 0.00 0.00 - 0.01 x10'3/uL 10/12/2024 5:31 AM CDT [facility] NRBC % 0.0 % 10/12/2024 5:31 AM CDT [facility] 10/12/2024 5:2 3 AM CDT us Teresa Nieves MD LABORATORY Final Result Performing Organization Address City/[facility]/ZIP Co de Phone Number [facility] [address] [place] [address], [phone] * THYROXINE, FREE (FT4) (10/12/2024 5:23 AM CDT) FREE T4 1.30 0.76 - 1.46 NG/DL 10/12/2024 6:11 AM CDT [facility] 10/12/2024 5:23 AM CDT us Teresa Nieves MD LABORATORY Final Result Performing Organization Address [facility]/ZIP Co de Phone Number [facility] [address] [address], [phone] * TROPONIN, QUANT (10/12/2024 5:23 AM CDT) Only the most recent of3 resultswithin the time period is included. TROPONIN I HIGH SENSITIVITY 3 0 - 53 ng/L 10/12/2024 6:11 AM CDT [facility] 10/12/2024 5:23 AM CDT us Teresa Nieves MD LABORATORY Final Result Performing Organization Address City/[facility]/ZIP Co de Phone Number [facility] [address] [place] [address], [place] [phone] * MAGNESIUM (10/12/2024 5:23 AM CDT) MAGNESIUM 2.3 1.6 - 2.6 MG/DL 10/12/2024 6:11 AM CDT [facility] 10/12/2024 5:23 AM CDT us Teresa Nieves MD LABORATORY Final Result Performing Organization Address [facility] Co de Phone Number [facility] [address] [place] [address], [place] [phone] * XR CHEST PORTABLE (10/11/2024 4:32 PM CDT) Anatomical Region Laterality Modality Chest Radiographic Anabel ging 10/11/2024 4:47 PM CDT Impressions 10/11/2024 4:49 PM CDT Impression: No acute findings. Referred By: Interpreted By: Jens Moore MD, 10/11/2024 4:47 PM Narrative 10/11/2024 4:49 PM CDT [facility] [address] [address] [facility] [id number] Examination: Chest 1 view portable History: Weakness, dehydration DATE/TIME: 10/11/2024 4:32 PM Comparison: 01/18/2024 Technique: AP upright portable view of the chest was obtained. Findings: Heart size, mediastinal contours and pulmonary vasculature are within normal limits. No pulmonary consolidation, pleural fusion or pneumothorax. No acute osseous abnormality. Procedure Note Jens Moore MD - 10/11/2024 [facility] [address] [place] [address] Examination: Chest 1 view portable History: Weakness, dehydration DATE/TIME: 10/11/2024 4:32 PM Comparison: 01/18/2024 Technique: AP upright portable view of the chest was obtained. Findings: Heart size, mediastinal contours and pulmonary vasculature arewithin normal limits. No pulmonary consolidation, pleural fusion orpneumothorax. No acute osseous abnormality. Impression: No acute findings. 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1990 Requested By: ROJAS WELCH Order Number: [id number] Reading MD: April Hawk Measurements Intervals Bradford Rate: 80 P: 74 SD: 157 QRS: 90 QRSD: 74 T: 54 QT: 369 QTc: 426 Interpretive Statements SINUS RHYTHM WITH SINUS ARRHYTHMIA NONSPECIFIC T-WAVE ABNORMALITY Compared to ECG 06/09/2022 13:16:12 T-wave abnormality now present Procedure Note April Hawk MD - 10/12/2024 [facility] Test Date: 2024-10-11 Pat Name: MARYANNE CLEMONS Department: 85 Room: EXAM 303 Gender: Female 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1990 Requested By: ROJAS WELCH Order Number: [id number] Reading MD: April Hawk Measurements Intervals Bradford Rate: 80 P: 74 SD: 157 QRS: 90 QRSD: 74 T: 54 QT: 369 QTc: 426 Interpretive Statements SINUS RHYTHM WITH SINUS ARRHYTHMIA NONSPECIFIC T-WAVE ABNORMALITY Compared to ECG 06/09/2022 13:16:12 T-wave abnormality now present Rojas Welch MD ECG ORDERABLES Final Result [facility] ([facility]) RAD * CT ABD+PEL WO CON (10/11/2024 1:45 PM CDT) Anatomical Region Laterality Modality Abdomen Computed Tomogra phy 10/11/2024 2:36 PM CDT Impressions 10/11/2024 2:41 PM CDT IMPRESSION: There is a moderate to large pericardial effusion is present. This is similar as compared back to November 2023. Echocardiogram recommended if not recently performed. Minimal presacral fluid is present. The proximal appendix is unremarkable. The distal appendix is obscured by small bowel. Nonobstructive left nephrolithiasis. Prior hysterectomy. Prior cholecystectomy. Ordered By: ROJAS WELCH Interpreted By: Silverio Hernandez MD, 10/11/2024 2:36 PM Narrative 10/11/2024 2:41 PM CDT [facility] [address] [place] [address] Procedure(s): CT ABD+PEL WO CON Date of service: 10/11/2024 1:44 PM Provided clinical information: 33 years, Female, right flank pain UTI. Procedure and materials: Helical images of the abdomen and pelvis are obtained from superior to the diaphragm to inferior to the pubic symphysis. Examination is performed without the use of intravenous contrast. A dose lowering technique was used for this procedure, which may include, but is not limited to, dose reduction technique, automated exposure control, iterative reconstruction, ALARA (As Low As Reasonably Achievable), or Image Gently techniques. Comparison studies: December 02, 2023. Findings: CT abdomen and pelvis: Lung Bases: No pleural effusions or consolidations.There is a moderate to large pericardial effusion that is present. This is similar as compared back to November 2023. Echocardiogram recommended. Adrenals:Unremarkable. Spleen:Unremarkable. Gallbladder and Biliary system:Prior cholecystectomy. Pancreas:Unremarkable. Liver:Unremarkable. Kidneys:Nonobstructing nephrolithiasis interpolar left kidney. No hydronephrosis. No perinephric stranding. Bowel:Diverticulosis. No evidence of acute diverticulitis. No pericolonic inflammatory changes are present. The proximal appendix is unremarkable. The distal appendix is obscured by small bowel. No small bowel dilatation is present. Aorta and Retroperitoneum:No enlarged lymph nodes. Aorta is not aneurysmal. Pelvic Organs:Urinary bladder is unremarkable. Uterus is absent. Bone/Musculoskeletal: No aggressive osseous lesions. Free fluid: Minimal presacral fluid is present. Procedure Note Silverio Hernandez MD - 10/11/2024 [facility] [address] [address] [facility] [place] [address] Procedure(s): CT ABD+PEL WO CON Date of service: 10/11/2024 1:44 PM Provided clinical information: 33 years, Female, right flank painUTI. Procedure and materials: Helical images of the abdomen and pelvis areobtained from superior to the diaphragm to inferior to the pubicsymphysis. Examination is performed without the use of intravenouscontrast. A dose lowering technique was used for this procedure, which may include,but is not limited to, dose reduction technique, automated exposurecontrol, iterative reconstruction, ALARA (As Low As ReasonablyAchievable), or Image Gently techniques. Comparison studies: December 02, 2023. Findings: CT abdomen and pelvis: Lung Bases: No pleural effusions or consolidations.There is a moderate tolarge pericardial effusion that is present. This is similar as comparedback to November 2023. Echocardiogram recommended. Adrenals:Unremarkable. Spleen:Unremarkable. Gallbladder and Biliary system:Prior cholecystectomy. Pancreas:Unremarkable. Liver:Unremarkable. Kidneys:Nonobstructing nephrolithiasis interpolar left kidney. Nohydronephrosis. No perinephric stranding. Bowel:Diverticulosis. No evidence of acute diverticulitis. No pericolonicinflammatory changes are present. The proximal appendix is unremarkable.The distal appendix is obscured by small bowel. No small bowel dilatationis present. Aorta and Retroperitoneum:No enlarged lymph nodes. Aorta is notaneurysmal. Pelvic Organs:Urinary bladder is unremarkable. Uterus is absent. Bone/Musculoskeletal: No aggressive osseous lesions. Free fluid: Minimal presacral fluid is present. IMPRESSION: There is a moderate to large pericardial effusion is present. This issimilar as compared back to November 2023. Echocardiogram recommended ifnot recently performed. Minimal presacral fluid is present. The proximal appendix is unremarkable.The distal appendix is obscured by small bowel. Nonobstructive left nephrolithiasis. Prior hysterectomy. Prior cholecystectomy. Ordered By: ROJAS WELCH Interpreted By: Silverio Hernandez MD, 10/11/2024 2:36 PM us Rojas Welch MD CT Final Result * Critical Care (10/11/2024 1:36 PM CDT) Rojas Ware MD - 10/11/2024 1:36 PM CDT Rojas Welch MD 10/11/2024 7:00 PM Critical Care Performed by: Rojas Welch MD Authorized by: Rojas Welch MD Critical care provider statement: Critical care time (minutes): 30 Critical care time was exclusive of: Separately billable procedures and treating other patients and teaching time Critical care was necessary to treat or prevent imminent or life-threatening deterioration of the following conditions: Cardiac failure Critical care was time spent personally by me on the following activities: Development of treatment plan with patient or surrogate, discussions with consultants, evaluation of patient's response to treatment, examination of patient, obtaining history from patient or surrogate, ordering and performing treatments and interventions, ordering and review of laboratory studies, ordering and review of radiographic studies, pulse oximetry, re-evaluation of patient's condition and review of old charts I assumed direction of critical care for this patient from another provider in my specialty: no Care discussed with: accepting provider at another facility Rojas Welch MD PROCEDURE/MINOR SURGICAL ORDERAB LES Final Result * (ABNORMAL) URINALYSIS, AUTO, COMPLETE (10/11/2024 1:26 PM CDT) COLOR (U) YELLOW 10/11/2024 1:46 PM CDT [facility] TRANSPARENCY CLEAR 10/11/2024 1:46 PM CDT [facility] SPECIFIC GRAVITY (U) 1.025 1.000 - 1.030 10/11/2024 1:46 PM CDT [facility] U PH 6.0 5.0 - 9.0 10/11/2024 1:46 PM CDT [facility] LEUKOCYTES (U) NEGATIVE NEGATIVE 10/11/2024 1:46 PM CDT [facility] NITRITES NEGATIVE NEGATIVE 10/11/2024 1:46 PM CDT [facility] PROTEIN RANDOM (U) TRACE(A) NEGATIVE 10/11/2024 1:46 PM CDT [facility] GLUCOSE (U) NEGATIVE NEGATIVE 10/11/2024 1:46 PM CDT [facility] KETONES MG/DL (U) TRACE(A) NEGATIVE 10/11/2024 1:46 PM CDT [facility] BILIRUBIN (U) 1+(A) NEGATIVE 10/11/2024 1:46 PM CDT [facility] BLOOD (U) NEGATIVE NEGATIVE 10/11/2024 1:46 PM CDT [facility] WBC/HPF NONE SEEN 0 - 5 /HPF 10/11/2024 1:46 PM CDT [facility] RBC/HPF 0-5 0 - 5 /HPF 10/11/2024 1:46 PM CDT [facility] EPI/HPF FEW /HPF 10/11/2024 1:46 PM CDT [facility] URINE SPECIMEN OBTAINED BY CLEAN CATCH PROCEDURE / Unknown 10/11/2024 1:26 PM CDT us Rojas Welch MD URINE ORDERABLES Final Result [facility] [address] [place] [address], [place] [phone] from Last 3 Months Insurance [employer] Advance Directives Documents on File Type Date Recorded 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 Advance Directives and Living Will 10/20/2017 12:00 AM ADVANCED DIRECTIVES Advance Directives and Living Will 10/04/2017 12:00 AM ADV[employer]ED DIRECT[employer]ES Advance Directives and Living Will 09/13/2017 12:00 AM ADV[employer]ED DIRECTIVES Advance Directives and Living Will 02/03/2017 12:00 AM ADV[employer]ED DIRECTIVES * Full Code (Latest Code Status on File) Date Activated Date Inactivated Comments 10/11/2024 11:33 PM 10/13/2024 4:42 PM 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
--- OUTSIDE RECORDS SUMMARY | 2024-11-06 23:31 | XMS_ITS | Encounter Summary ---
Author Organization [facility] Address [address] [place] [address] Care Team Providers Care [employer] Name Role Phone Lori Hector MD Primary Care Provider [phone] Douglas Mejia MD Unavailable Encounter Details Date Type Department Care Team (Late st Contact Info) Description 10/16/2024 Hospital Follow-up Call [facility] Unit [address] [place] [address] Jackie Warner, RN Social History Tobacco Use Types Packs/Day Years Used Date Smoking Tobacco: Former Cigarettes 0.5 10 0 09/2011 - 09/2021 Smokeless Tobacco: Never Alcohol Use Standard Drinks/Week Comments Yes 0 (1 standard drink = 0.6 oz pur e alcohol) socially [facility] Utilities Answer Date Recorded In the [...] any time in the past 12 m [facility], were you homeless or living in a fci (including now)? No 10/11/2024 Comments No Sex [...] on filedocumented in this encounter Care Teams [employer] Relationship Specialty Start Date End Date Lori Hector MD [address] [place] [phone] PCP - General FAMILY PRACTICE 10/03/18 Douglas Mejia MD [address] [place] [id number] Physician CARDIOLOGY 01/05/23 documented as of this encounter
--- NOTE | 2024-11-06 23:34 | ED.ABDPAIN ---
HPI - Abdominal Pain General Chief Complaint: Urogenital-Female Stated Complaint: uti? Time Seen by Provider: 11/06/24 23:34 Source: patient Mode of arrival: ambulatory Limitations: no limitations History of Present Illness HPI narrative: Patient is a 33-year-old female with left flank pain that starts around the back comes towards the front and flank and groin in the left. This started today. The pain is mobile and it makes her not get comfortable in any seated position. She has associated nausea. MD elicited complaint: flank pain ( Left) Pertinent past history: kidney stones Onset (ago): day(s) ( 1) Pain Consistency: constant Location: LLQ, L flank and groin ( left) Severity: similar to previous episodes Pain scale (0-10): 8 Quality: sharp Radiation: LLQ and L flank Migration to: LLQ Exacerbating factors: nothing Relieving factors: rest Context: confirms history of similar episodes ( kidney stones) Associated symptoms: nausea, diarrhea and dysuria Treatments prior to arrival: other ( none) Related Data Patient : No ( urine test was negative) Home Medications ?Medication ?Instructions ?Recorded ?Confirmed ?Last Taken ?Type levetiracetam 750 mg tablet 750 mg PO HS 10/26/22 08/02/23 Unknown History (Keppra) trazodone 100 mg tablet 100 mg PO QHS PRN Insomnia 10/26/22 08/02/23 Unknown History levetiracetam 1,500 mg 1,500 mg PO DAILY 08/02/23 08/02/23 Unknown History tablet,extended release 24 hr Allergies Allergy/AdvReac Type Severity Reaction Status Date / Time latex AdvReac Intermediate Unknown Verified 11/06/24 23:42 Review of Systems Review of Systems: All systems reviewed & are unremarkable except as noted in HPI and below Constitutional: Constitutional: Reports no additional constitutional complaints Eyes: Eyes: Reports no additional eye complaints ENT: Reports system reviewed and no additional complaints, except as documented Cardiovascular: Cardiovascular: Reports no additional cardiovascular complaints Respiratory: Respiratory: Reports no additional respiratory complaints Gastrointestinal: Gastrointestinal: Reports no additional gastrointestinal complaints Genitourinary: Genitourinary: Reports no additional female genitourinary complaints Musculoskeletal: Musculoskeletal: Reports no additional musculoskeletal complaints Integumentary/Breasts: Skin/Breast: Reports system reviewed and no additional complaints, except as docu Neurologic: Reports system reviewed and no additional complaints, except as documented Psychiatric: Psychiatric: Reports no additional psychiatric complaints Endocrine: Endocrine: Reports no additional endocrine complaints Hematologic/Lymphatic: Hematologic/Lymphatic: Reports no additional hematologic/lymphatic complaints Allergic/Immunologic: Allergic/Immunologic: Reports no additional allergic/immunologic complaints [facility] Past Medical History Medical History Asthma Hypertension Inflammatory arthritis Seizures Surgical History Surgical History H/O laparoscopy H/O: hysterectomy Hx of cholecystectomy Family History Family History Father Hypertension Depression Sibling Asthma Cancer Depression Thyroid disorder Grandparent Alcoholism Cancer Diabetes mellitus Hypertension Heart disease Grandparent Asthma Diabetes mellitus Hypertension Heart disease Social History Social History Smoking status: Never smoker Alcohol intake: current Substance use: never Substance use type: does not use Lack of Transportation: No Lack of Food: Never True Current Housing: I Have Housing Concerned About Future Housing: No Difficulty Paying Gas/Electric Bills: No Difficulty Paying for Meds: No Currently Unemployed: No Education: Decline to Answer Difficulty w/ Childcare or Family Care: No Living arrangements: with family Exam Const: General: healthy appearing; No no acute distress Nutritional Appearance: well nourished Orientation/consciousness: patient oriented x3 Limitations: no limitations Other: acute distress with pain HENMT: Head: normal to inspection Ears: external ears normal Face/Nose/Sinus: Normal external nose present Eyes: Conjunctivae: conjunctivae normal Pupils: Equal, round and reactive pupils present EOM: EOMs intact bilaterally Neck: Neck: normal visual inspection Chest: Chest palpation & inspection: normal inspection of the chest Resp: Effort & Inspection: normal respiratory effort and not labored Auscultation: clear to auscultation bilaterally and no crackles Cardio: Rate: regular rate Rhythm: regular rhythm Heart sounds: no murmurs GI: Inspection: non-distended GI Palp: Yes Soft to palpation, Yes Tenderness to palpation present (GI) ( left flank, left lower quadrant and left groin tender to palpation), No Guarding due to palpation present (GI), No Rigid due to palpation, No Hernia present, No Palpable mass present and Yes Rebound tenderness present Auscultation: normal bowel sounds : General: Yes bladder normal to palpation Back/Spine/Pelvis: Back: no CVA tenderness Skin: General skin exam: normal color Rashes: no rashes Wounds: no wounds Neuro: General: patient oriented x3, moves all extremities, no meningeal signs, no focal motor deficits and CN's II-XI intact bilaterally Cranial nerves: Yes Nystagmus not present Speech: normal speech Gait exam (Neuro): Normal gait present Extrem: General: normal to inspection Psych: Mental Status: mental status grossly normal Affect: normal affect Attitude: cooperative Course Vital Signs Vital signs: Vital Signs Temperature 36.7 C 11/06/24 23:30 Pulse Rate 58 L 11/06/24 23:30 Respiratory Rate 18 11/06/24 23:30 Blood Pressure 145/99 H 11/06/24 23:30 Pulse Oximetry 99 11/06/24 23:30 Oxygen Delivery Room Air 11/06/24 23:30 Temperature 36.7 C 11/06/24 23:30 Pulse Rate 58 L 11/06/24 23:30 Respiratory Rate 18 11/06/24 23:30 Blood Pressure 145/99 H 11/06/24 23:30 Pulse Oximetry 99 11/06/24 23:30 Oxygen Delivery Room Air 11/06/24 23:30 MDM - Abdominal Pain MDM Narrative Medical decision making narrative: patient is a 33-year-old female with left flank pain and radiation to the left groin feels like she has had prior similar kidney stone pain. We will do a kidney stone workup at this time. CT scan. Pain control. Labs were ordered but unable to obtain at this time with labelling machine operator. Lab Data Attestation: I reviewed the patient's lab results. 11/07/24 01:23 11/07/24 01:23 Labs: Lab Results 11/06/24 11/07/24 Range/Units 23:40 01:23 WBC 6.7 (4.8-10.8) K/mm3 RBC 3.67 L (4.20-5.40) M/mm3 Hgb 11.4 L (12.0-15.0) g/dL Hct 34.3 L (35.0-49.0) % MCV 93.5 (78.0-102.0) fL MCH 31.1 H (27.0-31.0) pg MCHC 33.2 (32-36) g/dL RDW 12.8 (11.6-14.4) % Plt Count 214 (150-420) K/mm3 MPV 10.2 (9.2-11.8) fl Immature Gran % (Auto) 0.3 H (0.0-0.0) % Neut % (Auto) 77.7 H (50.0-70.0) % Lymph % (Auto) 15.2 L (18.0-42.0) % [place] % (Auto) 5.2 (2.0-11.0) % Eos % (Auto) 1.2 (1.0-6.0) % Baso % (Auto) 0.4 (0.0-1.0) % Lymph # (Auto) 1.02 L (1.10-4.50) K/mm3 [place] # (Auto) 0.35 (0.10-0.90) K/mm3 Eos # (Auto) 0.08 (0.02-0.50) K/mm3 Baso # (Auto) 0.03 (0.00-0.10) K/mm3 Abs Immat Gran (auto) 0.02 H (0.00-0.00) K/mm3 Absolute Neuts (auto) 5.22 (1.70-7.20) K/mm3 Absolute Nucleated RBC 0.00 (0.00-0.00) K/mm3 Nucleated RBC % 0.0 (0-0.0) % Sodium 142 (137-145) mmol/L Potassium 3.5 (3.4-5.0) mmol/L Chloride 110 H (98-107) mmol/L Carbon Dioxide 23 (22-30) mmol/L Anion Gap 9 (4-12) mmol/L BUN 15 D (7-17) mg/dL Creatinine 0.84 (0.7-1.0) mg/dL Estim Creat Clear Calc 76 ml/min Estimated GFR > 60 (59 - ) Glucose 103 (65-110) mg/dL Calculated Osmolality 294 (285-295) mOsm/kg Lactic Acid 1.2 (0.4-2.0) mmol/L Calcium 9.4 (8.4-10.2) mg/dL Total Bilirubin 0.5 (0.2-1.3) mg/dL AST 23 (14-36) U/L ALT 17 (6-35) U/L Alkaline Phosphatase 41 (38-126) U/L Total Protein 6.5 (6.3-8.2) g/dL Albumin 4.2 (3.5-5.1) g/dL Lipase 247 (23-300) U/L Urine Color Yellow (Yellow) Urine Appearance Cloudy A (Clear) Urine pH 7.0 (5.0-8.0) Ur Specific [place] 1.015 (1.010-1.020) Urine Protein Negative (Negative) Urine Glucose (UA) Negative (Negative) Urine Ketones Trace H (Negative) Ur Blood (Man) 3+ H (Negative) Urine Nitrate Negative (Negative) Urine Bilirubin Negative (Negative) Urine Urobilinogen 0.2 (0.2-1.0) mg/dL Leukocyte Esterase Rfl Negative (Negative) SASHA/UL Urine RBC >100 H (0-2) /hpf Urine WBC 0-3 (0-3) /hpf Ur Squamous Epith Cells Rare (Few) /hpf Urine Bacteria 1+ H (None) /hpf Urine Mucus Present /lpf Imaging Data Attestation: I personally reviewed and interpreted this imaging study as follows: Radiologist's impression: CT scan of the abdomen and pelvis shows a 2 mm left UVJ stone with dilated collecting system and obstruction Discharge Plan Discharge Clinical Impression: Calculus of distal left ureter Patient Disposition: Home Condition: Stable Instructions: Kidney Stones (ED) Additional Instructions: please follow-up with your primary doctor in the next week. Please follow-up with a urologist in the next week. Strain all of your urine. Come back to the ER for pain that does not resolve with the pain medicine. Patient Language: Italian Prescriptions: New cephalexin 500 mg capsule 500 mg PO BID 7 Days Qty: 14 0RF hydrocodone-acetaminophen 5-325 mg tablet 1 tablet PO Q8H PRN (Reason: pain) Qty: 20 0RF Rx Instructions: 1-2 tabs per dose tamsulosin [Flomax] 0.4 mg capsule 0.4 mg PO DAILY Qty: 20 0RF prednisone 20 mg tablet 20 mg PO DAILY 3 Days Qty: 3 0RF No Action levetiracetam 1,500 mg Tablet Extended Release 24 Hr 1,500 mg PO DAILY hydrocodone-acetaminophen 5-325 mg tablet 1 tablet PO Q8H PRN (Reason: severe pain (scale score 7-10)) Qty: 14 0RF naproxen 500 mg tablet 500 mg PO BID Qty: 20 0RF levetiracetam [Keppra] 750 mg tablet 750 mg PO HS trazodone 100 mg tablet 100 mg PO QHS PRN (Reason: Insomnia) hydrochlorothiazide 12.5 mg capsule 12.5 mg PO DAILY Qty: 30 0RF Follow-up/Referrals: Lori Hector MD [Primary Care Provider] - Time of Disposition: 02:16
[2024-11-06 23:58] LABS: Add Urine Microscopic? YES; Glucose Urine UA Negative (Negative); Leukocyte Esterase Ur Negative LEU/UL (Negative); Nitrate Urine Negative (Negative); Specific Grav Ur 1.015 (1.010-1.020)
--- OUTSIDE RECORDS SUMMARY | 2024-11-07 00:12 | XMS_ITS | Clinical Summary ---
Author Organization [facility] Address [address] [place] [address] Care Team Providers Care Field Cashier Name Role Phone Unavailable Primary Care Provider Unavailabl e Source Comments [facility],non-owned Affiliates and Associated Physician Practices is amultiple site organization consisting of ambulatory clinics and hospital sitesin [place], [place], [place] and [place]. This disclosure is being madepursuant to the Care Everywhere program and may not contain all information available regarding this patient. 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
--- OUTSIDE RECORDS SUMMARY | 2024-11-07 00:12 | XMS_ITS | Encounter Summary ---
Author Organization [facility] Address [address] [place] [address] Care Team Providers Care Fiber Optics Supervisor Name Role Phone Lori Hector MD Primary Care Provider [phone] Marty Bhagat MD Unavailable Unavailable Ghanshyam Robison MD Unavailable [phone] Douglas Mejia MD Unavailable Encounter Details Date Type Department Care Team (Late st Contact Info) Description 09/16/2022 MyChart Message Enc [facility] [address] [place], [place] [id number] [employer], [facility] Provider Air Quality Message Social History Tobacco [...] Rule Out 02/09/2024 02/09/2024 02/09/2024 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 documented as of this encounter Care Teams Fiber Optics Supervisor Relationship Specialty Start Date End Date Lori Hector MD [address] [place] [address] PCP - General FAMILY PRACTICE 10/03/18 Marty Bhagat MD [address] [place] [address] Consulting Physician INTERVENTIONAL CARDIOLOGY 03/28/20 01/04/23 Ghanshyam Robison MD [address] [place] [address] Referring Physician EMERGENCY MEDICINE 01/05/23 Douglas Mejia MD [address] [place] [address] Physician CARDIOLOGY 01/05/23 documented as of this encounter
--- OUTSIDE RECORDS SUMMARY | 2024-11-07 00:12 | XMS_ITS | Encounter Summary ---
Author Organization [facility] Address [address] [place] [address] Care Team Providers Care Party Director Name Role Phone Lori Hector MD Primary Care Provider [phone] Douglas Mejia MD Unavailable Reason for Referral * Imaging (Urgent) - Closed Specialty Diagnoses / Procedures Referred By Harman villalba Referred To Contact RADIOLOGY Diagnoses Pericardial effusion (HHS/HCC) Procedures USE ECHOCARDIOGRAM USE ECHOCARDIOGRAM Magalie Dorsey PA-C [address] [place] [address] Phone: tel: fax: Referral ID Status Reason Start Date Expiration Date Visits Re quested Visits Authorized [id number] Closed 10/16/2024 11/16/2025 1 1 Reason for Visit * Imaging (Urgent) - Closed Specialty Diagnoses / Procedures Referred By Harman villalba Referred To Contact RADIOLOGY Diagnoses Pericardial effusion (HHS/HCC) Procedures USE ECHOCARDIOGRAM USE ECHOCARDIOGRAM Magalie Dorsey PA-C [address] [place] [address] Phone: tel: fax: Referral ID Status Reason Start Date Expiration Date Visits Re quested Visits Authorized [id number] Closed 10/16/2024 11/16/2025 1 1 Encounter Details Date Type Department Care Team (Late st Contact Info) Description 11/06/2024 11:00 AM CDT Hospital Encounter [facility] [address] [place] [address] Magalie Dorsey PA-C [address] [facility] [address] [place] [id number] Arrived Social History Tobacco Use Types Packs/Day Years Used Date Smoking Tobacco: Former Cigarettes 0.5 10 0 09/2011 - 09/2021 Smokeless Tobacco: Never Alcohol Use Standard Drinks/Week Comments Yes 0 (1 standard drink = 0.6 oz pur e alcohol) socially [facility] Utilities Answer Date Recorded In the [...] any time in the past 12 m [facility], were you homeless or living in a residential (including now)? No 10/11/2024 Comments No Sex [...] CDT Echocardiography Report Pat.Name: MARYANNE ZAIDI Pat.ID: [id number] St.Date: 11/06/2024 Refer.: [id number] CANDY ABDI EWDPROV EWDPROV Exam Time: 11:17:00 AM Study Type:ECHO WITH CARDIAC DOPPLER COMP Height: 165 cm Weight: 61 kg BSA: 1.67 m2 Age: 9 1990,33Y Sex: F BP: 123/86 HR: 50 bpm Sonogrphr: Lupe Reyes RDCS Pat. Stat.:Outpatient CPT - 4: 98818 Reason for Study:Pericardial effusion Procedures: 2D, M-mode, [...] Mass 2D Value 139 g LV Mass [id number] Value 83.2 g/m2 Right Ventricle Right Ventricle [...] 11/06/2024 Echocardiography Report Pat.Name: MARYANNE ZAIDI Pat.ID: [id number] .Date: 11/06/2024 Refer.MD: [id number] CANDY ABDI EWDPROV EWDPROV Exam Time: 11:17:00 AM Study Type:ECHO WITH CARDIAC DOPPLER COMP Height: 165 cm Weight: 61 kg BSA: 1.67 m2 Age: 9 1990,33Y Sex: F BP: 123/86 HR: 50 bpm Sonogrphr: Lupe Reyes RDCS Pat. Stat.:Outpatient CPT - 4: 13906 Reason for Study:Pericardial effusion Procedures: 2D, M-mode, [...] Mass 2D Value 139 g LV Mass [id number] Value 83.2 g/m2 Right Ventricle Right Ventricle [...] pericardium documented in this encounter Care Teams Party Director Relationship Specialty Start Date End Date Lori Hector MD [address] [place] [address] PCP - General FAMILY PRACTICE 10/03/18 Douglas Mejia MD [address] [place] [address] Physician CARDIOLOGY 01/05/23 documented as of this encounter
--- OUTSIDE RECORDS SUMMARY | 2024-11-07 00:12 | XMS_ITS | Encounter Summary ---
Author Organization [facility] Address [address] [place] [address] Care Team Providers Care World History Teacher Name Role Phone Lori Hector MD Primary Care Provider [phone] Douglas Mejia MD Unavailable Encounter Details Date Type Department Care Team (Latest Contact Info) Description 11/06/2024 Travel Social History Tobacco Use Types Packs/Day Years Used Date Smoking Tobacco: Former Cigarettes 0.5 10 0 09/2011 - 09/2021 Smokeless Tobacco: Never Alcohol Use Standard Drinks/Week Comments Yes 0 (1 standard drink = 0.6 oz pur e alcohol) socially [facility] Utilities Answer Date Recorded In the [...] any time in the past 12 m [facility], were you homeless or living in a fdc (including now)? No 10/11/2024 Comments No Sex [...] on filedocumented in this encounter Care Teams World History Teacher Relationship Specialty Start Date End Date Lori Hector MD [address] [place] [id number] PCP - General FAMILY PRACTICE 10/03/18 Douglas Mejia MD [address] [place] [address] Physician CARDIOLOGY 01/05/23 documented as of this encounter
--- OUTSIDE RECORDS SUMMARY | 2024-11-07 00:12 | XMS_ITS | Encounter Summary ---
Author Organization [facility] Address [address] [place] [address] Care Team Providers Care Deputy Sheriff/Investigator Name Role Phone Lori Hector MD Primary Care Provider [phone] Douglas Mejia MD Unavailable Encounter Details Date Type Department Care Team (Latest Contact Info) Description 10/16/2024 [employer] Message Enc [facility] Care Unit [address] [place] [address] [facility] Provider discharge follow up call Social History Tobacco Use Types Packs/Day Years Used Date Smoking Tobacco: Former Cigarettes 0.5 10 0 09/2011 - 09/2021 Smokeless Tobacco: Never Alcohol Use Standard Drinks/Week Comments Yes 0 (1 standard drink = 0.6 oz pur e alcohol) socially [facility] Utilities Answer Date Recorded In the past 12 months has [facility] electric, gas, oil, or water [employer] threatened to shut off services in your [...] time in the past 12 m [facility], were you homeless or living in a half-way (including now)? No 10/11/2024 Comments No Sex [...] on filedocumented in this encounter Care Teams Deputy Sheriff/Investigator Relationship Specialty Start Date End Date Lori Hector MD [address] [place] [address] PCP - General FAMILY PRACTICE 10/03/18 Douglas Mejia MD [address] [place] [address] Physician CARDIOLOGY 01/05/23 documented as of this encounter
--- OUTSIDE RECORDS SUMMARY | 2024-11-07 00:12 | XMS_ITS | Encounter Summary ---
Author Organization [facility] Address [address] [place] [address] Care Team Providers Care Urgent Care Nurse Practitioner Name Role Phone Lori Hector MD Primary Care Provider [phone] Douglas Mejia MD Unavailable Encounter Details Date Type Department Care Team (Late st Contact Info) Description 10/16/2024 Hospital Follow-up Call [facility] Cardiovascular Care Unit [address] [place] [address] Jackie Warner, RN Social History Tobacco Use Types Packs/Day Years Used Date Smoking Tobacco: Former Cigarettes 0.5 10 0 09/2011 - 09/2021 Smokeless Tobacco: Never Alcohol Use Standard Drinks/Week Comments Yes 0 (1 standard drink = 0.6 oz pur e alcohol) socially [facility] Utilities Answer Date Recorded In [...] any time in the past 12 m [facility], were you homeless or living in [...] on filedocumented in this encounter Care Teams Urgent Care Nurse Practitioner Relationship Specialty Start Date End Date Lori Hector MD [address] [place] [address] PCP - General FAMILY PRACTICE 10/03/18 Douglas Mejia MD [address] [place] [address] Physician CARDIOLOGY 01/05/23 documented as of this encounter
--- OUTSIDE RECORDS SUMMARY | 2024-11-07 00:12 | XMS_ITS | Encounter Summary ---
Author Organization [facility] Address [address] [place] [address] Care Team Providers Care Business Technology Teacher Name Role Phone Lori Hector MD Primary Care Provider [phone] Douglas Mejia MD Unavailable Reason for Referral * (Routine) - New Request Specialty Diagnoses / Procedures Referred By Contac t Referred To Contact Diagnoses Palpitations Procedures CLINIC - [id number] [facility] Katerine Burns MD [address] [place] [address] Phone: tel: fax: Referral ID Status Reason Start Date Expiration Date V isits Requested Visits Authorized [id number] New Request 11/06/2024 11/06/2025 1 1 Reason for Visit * Reason Onset Date Comments Schedule Test 11/06/2024 Encounter Details Date Type Department Care Team (Late st Contact Info) Description 11/06/2024 Telephone [facility] [address] [place] [phone] Katerine Burns MD [address] [place] [address] Schedule Test Social History Tobacco Use Types Packs/Day Years Used Date Smoking Tobacco: Former Cigarettes 0.5 10 0 09/2011 - 09/2021 Smokeless Tobacco: Never Alcohol Use Standard Drinks/Week Comments Yes 0 (1 standard drink = 0.6 oz pur e alcohol) socially [facility] Utilities Answer Date Recorded In [...] any time in the past 12 m [facility], were you homeless or living in a skilled nursing (including now)? No 10/11/2024 Comments No Sex [...] Associated Diagnoses Orde r Schedule CLINIC - [address] [facility] - Today EKG-NonRad Routine Palpitations Expected: 11/06/2024, Expires: 11/06/2025 documented as of this encounter Visit Diagnoses Diagnosis Palpitations- Primary documented in this encounter Care Teams Business Technology Teacher Relationship Specialty Start Date End Date Lori Hector MD [address] [place] [address] PCP - General FAMILY PRACTICE 10/03/18 Douglas Mejia MD [address] [place] [address] Physician CARDIOLOGY 01/05/23 documented as of this encounter
--- OUTSIDE RECORDS SUMMARY | 2024-11-07 00:12 | XMS_ITS | Encounter Summary ---
Author Organization [facility] Address [address] [place] [address] Care Team Providers Care Criminal Investigator Customs Name Role Phone Lori Hector MD Primary Care Provider [phone] Douglas Mejia MD Unavailable Encounter Details Date Type Department Care Team (Late st Contact Info) Description 11/06/2024 [facility] eld [address] [place] [phone] Tracee De Oliveira RN Social History Tobacco Use Types Packs/Day Years Used Date Smoking Tobacco: Former Cigarettes 0.5 10 0 09/2011 - 09/2021 Smokeless Tobacco: Never Alcohol Use Standard Drinks/Week Comments Yes 0 (1 standard drink = 0.6 oz pur e alcohol) socially [facility] Utilities Answer Date Recorded In the past 12 months has [facility] electric, gas, oil, or water [employer] threatened to shut off services in your [...] in the past 12 m [facility], were you homeless or living in a [...] on filedocumented in this encounter Care Teams Criminal Investigator Customs Relationship Specialty Start Date End Date Lori Hector MD [address] [place] [address] [place] [phone] PCP - General FAMILY PRACTICE 10/03/18 Douglas Mejia MD [address] [place] [address] [place] [phone] Physician CARDIOLOGY 01/05/23 documented as of this encounter
--- OUTSIDE RECORDS SUMMARY | 2024-11-07 00:12 | XMS_ITS | Encounter Summary ---
Author Organization [facility] Address [address] [place] [address] Care Team Providers Care Tug Boat Captain Name Role Phone Lori Hector MD Primary Care Provider [phone] Douglas Mejia MD Unavailable Reason for Visit * Reason Comments Heart Problem Encounter Details Date Type Department Care Team (Late st Contact Info) Description 11/06/2024 12:45 PM CDT [facility] [address] [place] [phone] Katerine Burns MD [address] [place] [address] Heart Problem Social History Tobacco Use Types Packs/Day Years Used Date Smoking Tobacco: Former Cigarettes 0.5 10 0 09/2011 - 09/2021 Smokeless Tobacco: Never Alcohol Use Standard Drinks/Week Comments Yes 0 (1 standard drink = 0.6 oz pur e alcohol) socially [facility] Utilities Answer Date Recorded In the past 12 months has e [employer], gas, oil, or water [facility] threatened to shut off services in your [...] any time in the past 12 m [facility], were you homeless or living in a chcf (including now)? No 10/11/2024 Comments No Sex [...] Status No 10/11/2024 11:15 PM CDT Reuben Doramn R N Active * Do you have [...] of the time was also spent in rqoz-he-[id number] interactionwith the patient as well as formulating a plan for management. Thank you for allowing us to participate in the care of your patient and please do not hesitate to reach out to us if any questions or concerns. Katerine Burns MD [facility] Structural Single Stayer Operator Preferred: please message me via [employer] Secure Chat for non-urgent issues This note [...] outlines above in HPI Katerine Burns MD [facility] Structural Single Stayer Operator Preferred: please message me via [employer] Secure Chat for non-urgent issues This note [...] Primary documented in this encounter Care Teams Tug Boat Captain Relationship Specialty Start Date End Date Lori Hector MD [address] [place] [address] PCP - General FAMILY PRACTICE 10/03/18 Douglas Mejia MD [address] [place] [phone] Physician CARDIOLOGY 01/05/23 documented as of this encounter
--- OUTSIDE RECORDS SUMMARY | 2024-11-07 00:12 | XMS_ITS | Clinical Summary ---
Author Organization [facility] Address [address] [place] [address] Care Team Providers Care Field Manager Name Role Phone Lori Hector MD Primary Care Provider [phone] Douglas Mejia MD Unavailable Allergies No known [...] knee 08/11 PSVT (paroxysmal supraventricular tachycardia) ( [facility]) 05/31/2020 Pericardial effusion ([facility]) 04/03/2020 Mild intermittent asthma ([facility]) 04/03/2020 Epilepsy ([facility]) 12/04/2010 Resolved Problems Problem Noted Date Diagnosed Date Resolved Date Precordial pain 10/08/2021 05/10/2023 Dyspnea on exertion 04/03/2020 05/14/19 22 Encounters Date Type Department Care Team Description 11/06/2024 12:45 PM CDT Office Visit [facility] [address] [place] [address] Katerine Burns MD Heart Problem 11/06/2024 11:00 AM CDT Hospital Encounter [facility] Non Invasive Cardiology [facility] [address] [place] [address] Magalie Dorsey PA-C Arrived 11/06/2024 Telephone [facility] [address] [place] [address] Katerine Burns MD Schedule Test 11/06/2024 [facility] [place] [facility] [address] [place] [address] Tracee De Oliveira RN 11/06/2024 Travel 10/24/2024 Telephone [facility] [address] [place] [address] Katerine Burns MD Error 10/16/2024 MyChart Message Enc [facility] Cardiovascular [facility] [address] [place] [address] [facility] Provider discharge follow up call 10/16/2024 Hospital Follow-up Call [facility] Cardiovascular [facility] [address] [place] [address] Jackie Warner RN 10/16/2024 Telephone [facility] [address] [place] [address] Katerine Burns MD Concerns; Question 10/13/2024 Telephone [facility] [address] [place] [address] Katerine Burns MD Holter Monitor 10/13/2024 Telephone [facility] [address] [place] [address] Magalie Dorsey PA-C Appointment Request; Schedule Test 10/11/2024 11:05 PM CDT - 10/13/2024 2:36 PM CDT Hospital Encounter [facility] Cardiovascular [facility] [address] [place] [address] Riley Woods MD Shackour, Salim, MD Boddu, Lavanya, MD Discharge Disposition: Home or Self Care (Routine Discharge) 10/11/2024 12:41 PM CDT - 10/11/2024 9:23 PM CDT Emergency [facility] Emergency Room [id number] [place] [address] Rojas Welch MD Dehydration Discharge Disposition: Transfer [...] = 0.6 oz pur e alcohol) socially [facility] [employer] Answer Date Recorded In the past 12 months has e [employer] gas, oil, or water [employer] threatened to shut off services in your [...] time in the past 12 m [facility], were you homeless or living in a detention (including now)? No 10/11/2024 Comments No Sex [...] Vaccine (1 - season) 2023 PHQ-2 (Physician [place]) 03/22/2024 HPV Vaccines Completed 02/23/2008, 09/2007, 08/25/2007 [...] CDT Echocardiography Report Pat.Name: MARYANNE CLEMONS Pat.ID: [id number] .Date: 11/06/2024 : [id number] CANDY ABDI EWDPROV EWDPROV Exam Time: 11:17:00 AM Study Type:ECHO WITH CARDIAC DOPPLER COMP Height: 165 cm Weight: 61 kg BSA: 1.67 m2 Age: 9 1990,33Y Sex: F BP: 123/86 HR: 50 bpm Sonogrphr: Lupe Reyes RDCS Pat. Stat.:Outpatient CPT - 4: 98514 Reason for Study:Pericardial effusion Procedures: 2D, M-mode, [...] Mass 2D Value 139 g LV Mass [id number] Value 83.2 g/m2 Right Ventricle Right Ventricle [...] 11/06/2024 Echocardiography Report Pat.Name: MARYANNE CLEMONS Pat.ID: [id number] .Date: 11/06/2024 Refer.MD: [id number] CANDY ABDI EWDPROV EWDPROV Exam Time: 11:17:00 AM Study Type:ECHO WITH CARDIAC DOPPLER COMP Height: 165 cm Weight: 61 kg BSA: 1.67 m2 Age: 9 1990,33Y Sex: F BP: 123/86 HR: 50 bpm Sonogrphr: Lupe Reyes RDCS Pat. Stat.:Outpatient CPT - 4: 48809 Reason for Study:Pericardial effusion Procedures: 2D, M-mode, [...] Mass 2D Value 139 g LV Mass [id number] Value 83.2 g/m2 Right Ventricle Right Ventricle [...] - 145 MMOL/L 10/13/2024 5:53 AM CDT [facility] POTASSIUM S/P/B 3.7 3.5 - 5.1 MMOL/L 10/13/2024 5:53 AM CDT [facility] CHLORIDE S/P/B 112 97 - 115 MMOL/L 10/13/2024 5:53 AM CDT [facility] CO2 20.0(L) 21.0 - 32.0 MMOL/L 10/13/2024 5:53 AM CDT [facility] GLUCOSE 77 74 - 106 MG/DL 10/13/2024 5:53 AM CDT [facility] BUN 9 7 - 18 MG/DL 10/13/2024 5:53 AM CDT [facility] CREATININE S/P/B 0.74 0.55 - 1.02 MG/DL 10/13/2024 5:53 AM CDT [facility] CALCIUM S/P/B 9.2 8.5 - 10.1 MG/DL 10/13/2024 5:53 AM CDT [facility] ANION GAP 7.0 2.0 - 10.0 MMOL/L 10/13/2024 5:53 AM CDT [facility] OSMOLALITY (CALC) 285 MOSM/KG 025 5:53 AM CDT [facility] Comment:REFERENCE RANGE NOT ESTABLISHED GFR ESTIMATE >90 >90 ML/MIN/1. 73 M2 10/13/2024 5:53 AM CDT [facility] GFR NOTES GFR REFERENCE S: 10/13/2024 5:53 AM CDT [facility] Comment: THE ESTIMATED GFR IS CALCULATED [...] Magalie Dorsey PA-C LABORATORY Louisa l Result [facility] [address] [place] [address], [id number] * CTA CHEST PE PROTOCOL (10/12/2024 4:24 PM CDT) Anatomical Region Laterality Modality Chest Computed Tomogra phy 10/12/2024 7:11 PM CDT Impressions 10/12/2024 7:15 PM CDT IMPRESSION: 1. No evidence of pulmonary emboli. 2. Moderate pericardial effusion. 3. Tiny bilateral pleural effusions. Referred By: ROJAS WELCH Interpreted By: Cristhian Will MD, 10/12/2024 7:11 PM Narrative 10/12/2024 7:15 PM CDT [facility] [address] [place], [place] [address] Examination: CTA CHEST PE PROTOCOL Exam time: [...] Procedure Note Cristhian Will MD - 10/12/[address] [address] Examination: CTA CHEST PE PROTOCOL Exam time: [...] 7:09 PM Narrative 10/12/2024 7:11 PM [address] [address] Examination: CT HEAD WO CON Exam time: [...] Procedure Note Cristhian Will MD - 10/12/[address] [address] Examination: CT HEAD WO CON Exam time: [...] and/or operative report. us Arelis Bales MD [facility] Final Result * USE ECHOCARDIOGRAM (10/12/2024 9:38 AM CDT) Anatomical Region Laterality Modality Cardiac Echocardiogram 10/12/2024 8:27 AM CDT Narrative 10/13/2024 7:34 PM CDT Echocardiography Report Pat.Name: MARYANNE CLEMONS Pat.ID: [id number] St.Date: 10/12/2024 Refer.: [id number] ISABEL Gonzalez EWDPROV EWDPROV Exam Time: 8:27:00 AM Study Type:ECHO WITH CARDIAC DOPPLER COMP Height: 65 in Weight: 137 lb BSA: 1.68 m2 Age: 9 1990,33Y Sex: F BP: 114/76 HR: 66 bpm Sonogrphr: Zabrina Hightower [facility] Pat. Stat.:Inpatient Room: [facility] Reason for Study:Pericardial effusion Procedures: 2D, M-mode, [...] Mass 2D Value 120 g LV Mass [id number] Value 71.4 g/m2 RA Volume Atrial Reynoso [...] I BP 24.8 ml/m2 Right Atrium Minor [place] 2.14 cm Right Ventricle Right Ventricle 2.81 cm Right Ventricle 2.07 cm MMODE TA Tricuspid Annul 1.87 cm <Electronic Signature> 10/13/2024 07:34 PM Tess Maria M.D. Procedure Note Tess Maria MD - 10/13/2024 Echocardiography Report Pat.Name: MARYANNE CLEMONS Pat.ID: [id number] .Date: 10/12/2024 Refer.MD: [id number] ISABEL Gonzalez EWDPROV EWDPROV Exam Time: 8:27:00 AM Study Type:ECHO WITH CARDIAC DOPPLER COMP Height: 65 in Weight: 137 lb BSA: 1.68 m2 Age: 9 1990,33Y Sex: F BP: 114/76 HR: 66 bpm Sonogrphr: Zabrina Hightower RDCS Pat. Stat.:Inpatient Room: [facility] Reason for Study:Pericardial effusion Procedures: 2D, M-mode, [...] Mass 2D Value 120 g LV Mass [id number] Value 71.4 g/m2 RA Volume Atrial Reynoso [...] I BP 24.8 ml/m2 Right Atrium Minor [place] 2.14 cm Right Ventricle Right Ventricle 2.81 cm Right Ventricle 2.07 cm MMODE TA Tricuspid Annul 1.87 cm <Electronic Signature> 10/13/2024 07:34 PM Tess Maria M.D. Teresa Nieves MD ECHO Final Result * TSH W/REFLEX (10/12/2024 5:23 AM CDT) TSH 3.310 0.358 - 3.740 uIU/ML 10/12/2024 6:11 AM CDT [facility] Comment: ASSAY PERFORMED BY CHEMILUMINESCENCE METHODOLOGY USING SIEMENS DIMENSION VISTA REAGENT. PATIENT RESULTS DETERMINED BY ASSAYS USING DIFFERENT MANUFACTURERS FOR METHODS MAY NOT BE COMPARABLE. 10/12/2024 5:23 AM CDT Teresa Nieves MD LABORATORY Final Result [facility] [address] [place] [address], [phone] * SED RATE, ERYTHROCYTE (ESR,WSR) (10/12/2024 5:23 AM CDT) Pathologist [facility] ESR <1 0 - 20 MM/HR 10/12/2024 1:25 PM CDT [facility] 10/12/2024 5:23 AM CDT Magalie Dorsey PA-C LABORATORY Louisa l Result Performing Organization Address [facility] Co de Phone Number [facility] [address] [place] [address], [phone] * (ABNORMAL) PROTHROMBIN TIME, VENOUS (10/12/2024 5:23 AM CDT) Pathologist [facility] PROTIME 13.4(H) 9.4 - 12.5 SEC 10/12/2024 5:56 AM CDT [facility] INR 1.2(H) 0.8 - 1.1 10/12/2024 5:56 AM CDT [facility] 10/12/2024 5:23 AM CDT Teresa Nieves MD LABORATORY Final Result Performing Organization Address [facility] de Phone Number [facility] [address] [place] [address], [phone] * (ABNORMAL) COMPREHENSIVE METABOLIC PANEL (10/12/2024 5:23 AM CDT) Only the most recent of2 resultswithin the time period is included. Pathologist [facility] SODIUM S/P/B 139 136 - 145 MMOL/L 10/12/2024 6:11 AM CDT [facility] POTASSIUM S/P/B 3.3(L) 3.5 - 5.1 MMOL/L 10/12/2024 6:11 AM CDT [facility] CHLORIDE S/P/B 113 97 - 115 MMOL/L 10/12/2024 6:11 AM CDT [facility] CO2 22.6 21.0 - 32.0 MMOL/L 10/12/2024 6:11 AM CDT [facility] GLUCOSE 72(L) 74 - 106 MG/DL 10/12/2024 6:11 AM CDT [facility] BUN 10 7 - 18 MG/DL 10/12/2024 6:11 AM T [facility] CREATININE S/P/B 0.81 0.55 - 1.02 MG/DL 10/12/2024 6:11 AM [facility] CALCIUM S/P/B 8.7 8.5 - 10.1 MG/DL 10/12/2024 6:11 AM T [facility] BILIRUBIN TOTAL S/P/B 0.7 0.2 - 1.0 MG/DL 10/12/2024 6:11 AM T [facility] ALKALINE PHOSPHATASE S/P/B 51 37 - 98 U/L 10/12/2024 6:11 AM [facility] AST 12(L) 15 - 37 U/L 10/12/2024 6:11 AM [facility] ALT 29 13 - 56 U/L 10/12/2024 6:11 AM [facility] TOTAL PROTEIN S/P/B 6.7 6.4 - 8.2 G/DL 10/12/2024 6:11 AM [facility] ALBUMIN S/P/B 3.9 3.4 - 5.0 G/DL 10/12/2024 6:11 AM [facility] ANION GAP 3.4 2.0 - 10.0 MMOL/L 10/12/2024 6:11 AM [facility] OSMOLALITY (CALC) 286 MOSM/KG 025 6:11 AM [facility] Comment:REFERENCE RANGE NOT ESTABLISHED GFR ESTIMATE >90 >90 ML/MIN/1. 73 M2 10/12/2024 6:11 AM [facility] GFR NOTES GFR REFERENCE S: 10/12/2024 6:11 AM [facility] Comment: THE ESTIMATED GFR IS CALCULATED [...] MD LABORATORY Final Result Performing Organization Address [facility] Co de Phone Number [facility] [address] [place] [address], [phone] * C-REACTIVE PROTEIN (10/12/2024 5:23 AM CDT) C-REACTIVE PROTEIN <0.29 <0.80 mg/dL 10/12/2024 1:41 PM CDT [facility] 10/12/2024 5:23 AM CDT Magalie Dorsey PA-C LABORATORY Louisa l Result Performing Organization Address [facility] Co de Phone Number [facility] [address] [place] [address], [phone] * (ABNORMAL) CBC W/DIFF AUTOMATED (10/12/2024 5:23 AM CDT) Only the most recent of2 resultswithin the time period is included. WBC 4.98 4.00 - 10.80 x10'3/uL 10/12/2024 5:31 AM CDT [facility] RBC 4.14 4.10 - 5.40 x10'6/uL 10/12/2024 5:31 AM CDT [facility] HGB 13.0 12.0 - 16.0 G/DL 10/12/2024 5:31 AM CDT [facility] HCT 36.8 36.0 - 47.0 % 10/12/2024 5:31 AM CDT [facility] MCV 88.9 78.0 - 100.0 FL 10/12/2024 5:31 AM CDT [facility] MCH 31.4(H) 27.0 - 31.0 PG 10/12/2024 5:31 AM CDT [facility] MCHC 35.3 33.0 - 36.0 G/DL 10/12/2024 5:31 AM CDT [facility] RDW 11.8 11.5 - 14.5 % 10/12/2024 5:31 AM CDT [facility] PLT 236 150 - 350 x10'3/uL 10/12/2024 5:31 AM CDT [facility] MPV 10.7(H) 7.4 - 10.4 FL 10/12/2024 5:31 AM CDT [facility] DIFFERENTIAL TYPE AUTOMATED DIFFERENTIAL 10/12/2024 5:31 AM CDT [facility] SEG NEUTROPHILS 50.6 % 5:31 AM CDT [facility] LYMPHOCYTES 40.4 % 10/12/2024 5:31 AM CDT [facility] MONOCYTES 5.6 % 10/12/2024 5:31 AM CDT [facility] EOSINOPHILS 2.4 % 10/12/2024 5:31 AM CDT [facility] BASOPHILS 0.8 % 10/12/2024 5:31 AM CDT [facility] IMMATURE GRANS % 0.2 % 10/13/19 5:31 AM CDT [facility] ABS. NEUTROPHILS 2.52 1.60 - 8.30 x10'3/uL 10/12/2024 5:31 AM CDT [facility] ABS. LYMPHOCYTES 2.01 0.80 - 4.70 x10'3/uL 10/12/2024 5:31 AM CDT [facility] ABS. MONOCYTES 0.28 0.00 - 1.50 x10'3/uL 10/12/2024 5:31 AM CDT [facility] ABS. EOSINOPHILS 0.12 0.00 - 0.40 x10'3/uL 10/12/2024 5:31 AM CDT [facility] ABS. BASOPHILS 0.04 0.00 - 0.20 x10'3/uL 10/12/2024 5:31 AM CDT [facility] ABS. IMMATURE GRANULOCYTES 0.01 0.00 - 0.03 x10'3/uL 10/12/2024 5:31 AM CDT [facility] ABS. NUCLEATED RBC'S 0.00 0.00 - 0.01 x10'3/uL 10/12/2024 5:31 AM CDT [facility] NRBC % 0.0 % 10/12/2024 5:31 AM CDT [facility] 10/12/2024 5:2 3 AM CDT us Teresa Nieves MD LABORATORY Final Result Performing Organization Address [facility]/ZIP Co de Phone Number [facility] [address] [place] [address], [phone] * THYROXINE, FREE (FT4) (10/12/2024 5:23 AM CDT) FREE T4 1.30 0.76 - 1.46 NG/DL 10/12/2024 6:11 AM CDT [facility] 10/12/2024 5:23 AM CDT us Teresa Nieves MD LABORATORY Final Result Performing Organization Address [facility]/ZIP Co de Phone Number [facility] [address] [place] [address], [phone] * TROPONIN, QUANT (10/12/2024 5:23 AM CDT) Only the most recent of3 resultswithin the time period is included. TROPONIN I HIGH SENSITIVITY 3 0 - 53 ng/L 10/12/2024 6:11 AM CDT [facility] 10/12/2024 5:23 AM CDT us Teresa Nieves MD LABORATORY Final Result Performing Organization Address City/[facility]/ZIP Co de Phone Number [facility] [address] [place] [address], [place] [phone] * MAGNESIUM (10/12/2024 5:23 AM CDT) MAGNESIUM 2.3 1.6 - 2.6 MG/DL 10/12/2024 6:11 AM CDT [facility] 10/12/2024 5:23 AM CDT us Teresa Nieves MD LABORATORY Final Result Performing Organization Address [facility] Co de Phone Number [facility] [address] [place] [address], [place] [phone] * XR CHEST PORTABLE (10/11/2024 4:32 PM CDT) Anatomical Region Laterality Modality Chest Radiographic Anabel ging 10/11/2024 4:47 PM CDT Impressions 10/11/2024 4:49 PM CDT Impression: No acute findings. Referred By: Interpreted By: Jens Moore MD, 10/11/2024 4:47 PM Narrative 10/11/2024 4:49 PM CDT [facility] [address] [facility] [id number] Examination: Chest 1 view portable History: Weakness, dehydration DATE/TIME: 10/11/2024 4:32 PM Comparison: 01/18/2024 Technique: AP upright portable view of the chest was obtained. Findings: Heart size, mediastinal contours and pulmonary vasculature are within normal limits. No pulmonary consolidation, pleural fusion or pneumothorax. No acute osseous abnormality. 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 Sign: : 1990 Requested By: ROJAS WELCH Order Number: [id number] Reading MD: April Hawk Measurements Intervals [place] Rate: 80 P: 74 TN: 157 QRS: 90 QRSD: 74 T: 54 QT: 369 QTc: 426 Interpretive Statements SINUS RHYTHM WITH SINUS ARRHYTHMIA NONSPECIFIC T-WAVE ABNORMALITY Compared to ECG 06/09/2022 13:16:12 T-wave abnormality now present Procedure Note April Hawk MD - 10/12/2024 [facility] Test Date: 2024-10-11 Pat Name: MARYANNE CLEMONS Department: 85 Room: EXAM 303 Gender: Female Painter Helper Sign: : 1990 Requested By: ROJAS WELCH Order Number: [id number] Reading MD: April Hawk Measurements Intervals [place] Rate: 80 P: 74 TN: 157 QRS: 90 QRSD: 74 T: 54 QT: 369 QTc: 426 Interpretive Statements SINUS RHYTHM WITH SINUS ARRHYTHMIA NONSPECIFIC T-WAVE ABNORMALITY Compared to ECG 06/09/2022 13:16:12 T-wave abnormality now present Rojas Welch MD ECG ORDERABLES Final Result [facility] ([facility]) RAD * CT ABD+PEL WO CON (10/11/2024 [...] 2:36 PM Narrative 10/11/2024 2:41 PM CDT [facility] [address] [place] [address] Procedure(s): CT ABD+PEL WO CON Date of [...] Procedure Note Silverio Hernandez MD - 10/11/2024 [facility] [address] [facility] [facility] [place] [address] Procedure(s): CT ABD+PEL WO CON Date of [...] COLOR (U) YELLOW 10/11/2024 1:46 PM CDT [facility] TRANSPARENCY CLEAR 10/11/2024 1:46 PM CDT [facility] SPECIFIC GRAVITY (U) 1.025 1.000 - 1.030 10/11/2024 1:46 PM CDT [facility] U PH 6.0 5.0 - 9.0 10/11/2024 1:46 PM CDT [facility] LEUKOCYTES (U) NEGATIVE NEGATIVE 10/11/2024 1:46 PM CDT [facility] NITRITES NEGATIVE NEGATIVE 10/11/2024 1:46 PM CDT [facility] PROTEIN RANDOM (U) TRACE(A) NEGATIVE 10/11/2024 1:46 PM CDT [facility] GLUCOSE (U) NEGATIVE NEGATIVE 10/11/2024 1:46 PM CDT [facility] KETONES MG/DL (U) TRACE(A) NEGATIVE 10/11/2024 1:46 PM CDT [facility] BILIRUBIN (U) 1+(A) NEGATIVE 10/11/2024 1:46 PM CDT [facility] BLOOD (U) NEGATIVE NEGATIVE 10/11/2024 1:46 PM CDT [facility] WBC/HPF NONE SEEN 0 - 5 /HPF 10/11/2024 1:46 PM CDT [facility] RBC/HPF 0-5 0 - 5 /HPF 10/11/2024 1:46 PM CDT [facility] EPI/HPF FEW /HPF 10/11/2024 1:46 PM CDT [facility] URINE SPECIMEN OBTAINED BY CLEAN CATCH PROCEDURE / Unknown 10/11/2024 1:26 PM CDT us Rojas Welch MD URINE ORDERABLES Final Result [facility] [address] [place] [address], [place] [phone] from Last 3 Months Insurance [employer] Advance Directives Documents on File Type Date Recorded Patient Internal Controls Specialist Expl anation Advance Directives and Living Will 10/20/2017 12:00 AM ADVANCED DIRECTIVES Advance Directives and Living Will 10/04/2017 12:00 AM ADVANCED DIRECTIVES Advance Directives and Living Will 09/13/2017 12:00 AM ADVANCED DIRECTIVES Advance Directives and Living Will 02/03/2017 12:00 AM ADVANCED DIRECTIVES * Full Code (Latest Code Status on File) Date Activated Date Inactivated Comments 10/11/2024 11:33 PM 10/13/2024 4:42 PM Care Teams Field Manager Relationship Specialty Start Date End Date Lori Hector MD [address] [facility] [place] [id number] PCP - General FAMILY PRACTICE 10/03/18 [place] [address] [place] [address] [place] [address] Physician CARDIOLOGY 01/05/23
--- OUTSIDE RECORDS SUMMARY | 2024-11-07 00:13 | XMS_ITS | Clinical Summary ---
Author Organization [facility] [address] [facility] Address [address] [place] [address] Care Team Providers Care Drywall Sander Name Role Phone Lori Hector MD Primary Care Provider [phone] Kimberly Pastrana Unavailable [phone] Allergies No known active allergies Medications albuterol [...] 1 capsule (12.5 mg total) by mouth medical assistant before breakfast 4 Active HYDROcodone-hayder taminophen (NORCO) [...] of nausea/vomiting today. 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 Had presented to local ED on 06/09, at that time with normal ekg/trop/CT PE (same small pericardial effusion) and discharged. - ED workup unremarkable with ekg, tsh, trop, cxr, ua, test negative Unclear etiology, pt has followed with local collision repair technician for similar issue in past including chest [...] been hypertensive, was started on chlorthalidone/losartan by collision repair technician. 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 Gender Identity Not on file Sexual [...] Vaccines Completed 02/23/2008, 09/2007, 08/25/2007 Insurance [employer] [facility] [employer] [facility] Advance Directives For more information, please contact: [phone] * Full Code (Latest Code Status on File) Date Activated Date Inactivated Comments 06/11/2022 4:18 AM 06/12/2022 8:32 PM Care Teams Drywall Sander Relationship Specialty Start Date End Date Lori Hector MD [address] [place] [address] PCP - General Family Medicine 02/19/21 Kimberly Pastrana PA [address] [place] [address] Physician Bleach Boiler Filler Family Medicine 06/02/22
[2024-11-07] MEDS: KETOROLAC (*BKC) 60 MG/2 ML VIAL IM (00:24)
[2024-11-07] MEDS: ONDANSETRON HCL ODT 4 MG TABLET PO (00:24)
[2024-11-07 00:42] LABS: Appearance Urine Cloudy (Clear)
[2024-11-07 01:34] LABS: Hematocrit 34.3 % (35.0-49.0); Hemoglobin 11.4 g/dL (12.0-15.0); Immature Granulocyte Percent A 0.3 % (0.0-0.0); Lymphocytes Absolute Auto 1.02 K/mm3 (1.10-4.50); Mean Corpuscular HGB Conc 33.2 g/dL (32-36); Mean Corpuscular Hemoglobin 31.1 pg (27.0-31.0); Mean Corpuscular Volume 93.5 fL (78.0-102.0); Nucleated Red Blood Cells Absolute Auto 0.00 K/mm3 (0.00-0.00); Nucleated Red Blood Cells Perc 0.0 % (0-0.0); Platelet Count Result 214 K/mm3 (150-420); Red Blood Count 3.67 M/mm3 (4.20-5.40); White Blood Count 6.7 K/mm3 (4.8-10.8)
[2024-11-07 01:43] LABS: Lipase 247 U/L (23-300)
[2024-11-07 01:44] LABS: Alanine Aminotransferase 17 U/L (6-35); Albumin Level 4.2 g/dL (3.5-5.1); Alkaline Phosphatase 41 U/L (38-126); Anion Gap 9 mmol/L (4-12); Aspartate Amino Transferase 23 U/L (14-36); Bilirubin,Total 0.5 mg/dL (0.2-1.3); Blood Urea Nitrogen 15 mg/dL (7-17); Calcium 9.4 mg/dL (8.4-10.2); Carbon Dioxide 23 mmol/L (22-30); Chloride 110 mmol/L (98-107); Estimated CRCL calculation 76 ml/min; Estimated Glomerular Filt Rate > 60; Glucose 103 mg/dL (65-110); Osmolality Calculated 294 mOsm/kg (285-295); Potassium 3.5 mmol/L (3.4-5.0); Sodium 142 mmol/L (137-145); Total Protein 6.5 g/dL (6.3-8.2)
[2024-11-07] MEDS: TAMSULOSIN HCL 0.4 MG CAPSULE PO (02:16)
[2024-11-07] MEDS: CEPHALEXIN 500 MG CAPSULE PO (02:30)
[2024-11-07 02:48] VITALS: BP 132/87; PULSE 57; RESP 16; TEMP 36.7; O2SAT 100
--- NOTE | 2024-11-09 13:22 | PC.NURSE ---
URINE CULTURE FINAL POSITIVE FOR MIXED UROGENITAL [facility] PT ON CEPHALEXIN 500MG BID FOR [address] PENNY NO FURTHER ORDERS NEEDED
--- NOTE | 2024-11-10 12:58 | PC.NURSE ---
Preliminary blood culture report; no growth in 24 hours.
--- NOTE | 2024-11-11 13:52 | PC.NURSE ---
preliminary blood cultures x1 reviewed. no growth in 48 hours.
--- NOTE | 2024-11-14 13:02 | PC.NURSE ---
BLOOD CULTURE FINAL RESULTS: NO GROWTH. MD YOKO NO NEW ORDERS FOR THIS PT.
== END 2024-11-07 02:50 | disposition home or self-care (01) ==
PROVIDERS: Emergency Provider Emergency Medicine; PCP Family Medicine
DX: N20.1 Calculus of ureter (principal); I10 Essential (primary) hypertension
CPT/HCPCS: 36415; 74176; 80053; 81001; 83605; 83690; 85025; 87040; 87086; 96372; 99284; A9270; J1885; J7512